=== PATIENT | female | born 1935 | race Caucasian/White ===

== ENCOUNTER 2017-01-15 14:57 | Inpatient (IN) ==
[2017-01-15] MEDS ORDERED: DUONEB (A & A) ONE (15:01)
[2017-01-15 15:13] LABS: MANUAL DIFF NEEDED? NO
[2017-01-15 15:15] LABS: BE 9.2 mmoll (-3.0-3.0); BLOOD TYPE ARTERIAL; DRAW SITE R BRACHIAL; METHB 1.5 % (0.0-1.5); O2(CT) 18.2 mL/dL (15.0-23.0); PO2(98.6) 80 mmHg (60-100); SAMPLE BLOOD; SAO2 97.9 % (95.0-100.0); THB 13.8 g/dL (11.5-17.4); pH(98.6) 7.42 (7.35-7.45)
[2017-01-15 15:15] LABS: BASO% 0.3 % (0.0-0.8); EOS# 0.02 X1000 (0.0-0.7); EOS% 0.2 % (0.0-10.0); HEMATOCRIT 40.1 % (37.0-47.0); IMM GRAN# 0.03 X1000 (0.0-0.04); IMM GRAN% 0.2 % (0.0-0.5); LYMPH# 1.76 X1000 (1.2-3.4); LYMPH% 13.5 % (20.5-51.1); MCH 29.7 PG (27-31); MCHC 32.4 g/dL (33-37); MCV 91.6 FL (81-99); MONO# 1.54 X1000 (0.11-0.59); MONO% 11.8 % (1.7-9.3); MPV 9.5 FL (7.4-10.4); PLT 224 X1000 (130-400); RBC 4.38 XMIL (4.2-5.4)
[2017-01-15] MEDS ORDERED: SOLU-MEDROL IV ONE (15:16)
[2017-01-15] MEDS ORDERED: DUONEB (A & A) INH ONE ×2 (15:16→15:33)
[2017-01-15] MEDS ORDERED: ATIVAN IV ONE (15:16)
[2017-01-15 15:18] LABS: ALLEN TEST NO; MODALITY CANNULA; PCO2(98.6) 55 mmHg (35-45)
--- NOTE | 2017-01-15 15:23 | EKG Report ---
Test Performed on : 01/15/2017 3:17:17 PM Test Reason : CHEST PAIN Blood Pressure : / mmHG Vent. Rate : 080 BPM Atrial Rate : 080 BPM P-R Int : 232 ms QRS Dur : 142 ms QT Int : 410 ms P-R-T Axes : 087 -45 095 degrees QTc Int : 472 ms Sinus rhythm. with 1st degree AV block. with occasional premature ventricular complexes. Left axis deviation Left bundle branch block Abnormal ECG When compared with ECG of 27-MAR-2016 03:20, premature ventricular complexes. are now present Left bundle branch block is now present Criteria for Septal infarct are no longer present Unconfirmed Result
[2017-01-15 15:37] LABS: INR 0.96 (0.86-1.15); PROTIME 13.6 Seconds (12.1-15.5)
[2017-01-15 15:38] LABS: PTT PL 37.5 Seconds (22.6-43.9)
--- NOTE | 2017-01-15 15:38 | PROVIDER DOCUMENTATION ---
HPI-General Adult - General Chief Complaint: Shortness of Breath Stated Complaint: sob Time Seen by Provider: 01/15/17 15:26 Source: patient Allergies/Adverse Reactions: Patient Allergies Allergy/AdvReac Type Severity Reaction Status Date / Time No Known Allergies Allergy Verified 03/27/16 03:13 Home Medications: Home Medication List Medication Instructions Recorded Confirmed Last Taken Type ATORVAstatin [Lipitor] 80 mg PO DAILY 03/27/16 03/27/16 03/26/16 History Albuterol 0.5% INH Conc [Albuterol 1 dose INH DIRECTED 03/27/16 03/27/16 Unknown History 0.5% INH Conc For Hyperkalemia] Amlodipine [Norvasc] 5 mg PO DAILY 03/27/16 03/27/16 03/26/16 History Arformoterol Neb [Brovana Neb] 1 dose INH DIRECTED 03/27/16 03/27/16 Unknown History Aspirin [Aspirin EC] 81 mg PO DAILY 03/27/16 03/27/16 03/26/16 History Azithromycin [Zithromax Z-Deonte] 250 mg PO DIRECTED #1 pkg 03/27/16 Unknown Rx Budesonide 1 dose INH DIRECTED 03/27/16 03/27/16 Unknown History Calcium Carbonate [Caltrate 600] 1,200 mg PO DAILY 03/27/16 03/27/16 03/26/16 History Cetirizine HCl [Zyrtec] 10 mg PO DAILY 03/27/16 03/27/16 03/26/16 History Denosumab [Prolia] 1 dose IM DIRECTED 03/27/16 03/27/16 Unknown History Famotidine 20 mg PO DAILY 03/27/16 03/27/16 03/26/16 History Fluticasone 50 Mcg Nasal [place] 1 spray INH DIRECTED 03/27/16 03/27/16 History [Flonase] Furosemide 20 mg PO DAILY 03/27/16 03/27/16 03/26/16 History Lisinopril/Hydrochlorothiazide 1 tab PO DAILY 03/27/16 03/27/16 03/26/16 History [Lisinopril-Hctz 20-12.5 mg Tab] Methylprednisolone [Medrol Dosepak] 4 mg PO DIRECTED #1 package 03/27/16 Unknown Rx Metoprolol Succinate E.r. [Toprol 100 mg PO DAILY 03/27/16 03/27/16 03/26/16 History Xl] Potassium Chloride 10 meq PO DAILY 03/27/16 03/27/16 03/26/16 History - History of Present Illness -Gen Adult Nature of Presenting Problems: Pt. is 81 yof that presents with c/o SOB that has been worsening for three days. Pt. has a Hx of COPD and is on O2 all the time. Pt. denies any fever or other symptoms. Pt. states she is coughing but can't seem to get anything up. Location of Pain/Injury: reports: none. denies: head, face, mouth, neck, chest , upper extremity, hand(s), abdomen, back, pelvis, genitalia, lower extremity, feet, upper body, lower body, generalized, other Pain Radiation: reports: no radiation. denies: arm(s), back, buttocks, chest, epigastric, feet, groin, jaw, flank (L), legs (lower), LLQ, LUQ, neck, periumbilical, flank (R), RLQ, RUQ, shoulder(s), scapula, scrotal, sternal notch , suprapubic, legs (upper), urethral, vaginal, other Quality of Pain: reports: none. denies: aching, burning, cramping, dull, fullness, indigestion, pressure, sharp, stabbing, tearing, throbbing, tightness Severity: denies: mild, moderate, severe Onset/Duration: reports: gradual, 3 days ago Timing: reports: still present. denies: improving, gone now, resolved prior to arrival, intermittent, constant, changing over time, getting worse Context/Activities at Onset: reports: none. denies: recent emotional stress, recent physical stress, recent trauma history, possible bad food, cold exposure , out of country travel Modifying Factors: improves with: nothing Associated Symptoms: reports: anxiety, cough, shortness of breath. denies: denies symptoms, arm pain, back/neck pain, chest pain, constipation, diaphoresis , diarrhea, dizziness, EENT symptoms, fatigue, fever/chills, genitourinary problems, headaches, heartburn, joint pain, loss of appetite, malaise, muscle aches, sinus congestion/drainage, nausea, rash, seizure, sensory/motor loss, pain with inspiration, swelling/mass in abdomen, syncope, vomiting, weakness, trouble walking, other Similar Symptoms Previously?: Yes Recently seen or treated by another doctor?: No Review of Systems - Adult - REVIEW OF SYSTEMS - ADULT Constitutional: reports: see HPI. denies: chills, fever, fatique Eyes: reports: see HPI. denies: discharge, blurred vision, eye pain Ears, Nose, Mouth & Throat: reports: see HPI. denies: ear pain, sinus problem, mouth/dental pain, throat swelling Cardiovascular: reports: see HPI. denies: chest pain, irregular heart rate, palpitations, syncope Respiratory: reports: see HPI, cough, dyspnea on exertion, shortness of breath. denies: pleurisy, wheezing Gastrointestinal: reports: see HPI. denies: abdominal pain, diarrhea, nausea, vomiting Genitourinary: reports: see HPI. denies: dysuria, hematuria, incontinence, urgency Musculoskeletal: reports: see HPI. denies: bone pain, joint pain, muscle aches , neck pain Integumentary: reports: see HPI. denies: hives, itching, rash, skin thickening Neurological: reports: see HPI. denies: ataxia, headache/migraines, numbness, seizure, tremors Psychiatric: reports: see HPI. denies: anxiety, depression, emotional problems , insomnia, panic attacks, suicidal thoughts Past History - Adult - PAST MEDICAL HISTORY-ADULT Review of Records: reports: Old Records Reviewed, Nursing Assessment Review, Medications Reviewed, Social history reviewed & non-contributory. Major Childhood Illnesses: reports: denies history Cardiovascular: reports: HTN, hyperlipidemia, other (AAA) Respiratory: reports: COPD - PRIOR SURGERIES/PROCEDURES Surgical/Procedure History: reports: - IMMUNIZATION STATUS Childhood Immunizations: See Nurse Assessment Flu Vaccine: See Nurse Assessment - FAMILY HISTORY Family History: reviewed, not pertinent, other (o2 daily) - SOCIAL HISTORY Smoking: cigarettes, less than 1 pack/day Provider spent 3-5 mins advising pt. on dangers of tobacco.: Discussed the need to stop smoking. Physical Exam-General - PHYSICAL EXAM-ADULT Initial Vital Signs Reviewed: Yes - CONSTITUTIONAL General Appearance: alert, moderate distress, thin. negative: obese, anxious, lethargic, slow to respond, obtunded, combative - EYES Eyes: PERRL/EOMI, pink conjunctivae. negative: conjuctival exudate, photophobia , subconjunctival hemorrhage - HEAD, EARS, NOSE, MOUTH & THROAT HENMT: normocephalic/atraumatic, moist mucous membranes. negative: angioedema, frontal tenderness, maxillary tenderness - NECK Neck: non-tender, full range of motion, supple, normal inspection. negative: lymphadenopathy, trachial deviation, thyromegaly - RESPIRATORY Respiratory: accessory muscle use, rhonchi (bilaterally), wheezing, increased rate. negative: crackles, rales, stridor - CARDIOVASCULAR Cardiovascular: normal peripheral pulses, regular rate, rhythm, no edema, no JVD , no murmur. negative: extra beats, friction rub, irregularly irregular - GASTROINTESTINAL (ABDOMEN) Abdominal Exam: normal bowel sounds, non tender, soft. negative: distended, guarding, rigid, rebound, tenderness, hernia, mass - LYMPHATIC Lymphatic: no adenopathy. negative: axilla node tender, cervical node tenderness - MUSCULOSKELETAL Back Exam: normal inspection, no CVA tenderness, no vertebral tenderness. negative: ecchymosis, swelling, vertebral tenderness Extremity: normal range of motion, non-tender, normal gait, normal inspection. negative: deformity, erythema, inflammation, swelling, tenderness Peripheral Pulses: radial (R): 2+, radial (L): 2+ - SKIN Integumentary: normal color, normal turgor, warm/dry. negative: cyanosis, diaphoresis, ecchymosis, erythema, jaundice, mottled, pallor, petechiae, purpura , rash, swelling, tenderness - NEUROLOGIC Neurologic: grossly normal, no motor/sensory deficits. negative: aphasia, facial droop, focal weakness, motor weakness, sensory deficit - PSYCHIATRIC Psych/Mental Status: normal mood/affect, normal thought content, normal thought process, oriented x 3. negative: anxious, paranoid, tearful Progress - PLAN OF CARE/RESULTS Progress/Plan/Lab Results: Vital Signs - 8 hr 01/15/17 15:01 01/15/17 15:20 Pulse Rate 81 94 H Respiratory Rate 28 H 20 Blood Pressure 184/96 O2 Sat by Pulse Oximetry 94 L 96 Laboratory Results - last 24 hr 01/15/17 01/15/17 14:45 15:11 WBC 13.04 H RBC 4.38 Hgb 13.0 Hct 40.1 MCV 91.6 MCH 29.7 MCHC 32.4 L RDW Std Deviation 13.3 Plt Count 224 MPV 9.5 Immature Gran % (Auto) 0.2 Neut % (Auto) 74.0 Lymph % (Auto) 13.5 L [place] % (Auto) 11.8 H Eos % (Auto) 0.2 Baso % (Auto) 0.3 Immature Gran # (Auto) 0.03 Neut # (Auto) 9.65 H Lymph # (Auto) 1.76 [place] # (Auto) 1.54 H Eos # (Auto) 0.02 Baso # (Auto) 0.04 Specimen Type ARTERIAL Sample Site R BRACHIAL pH 7.42 pCO2 55 H* pO2 80 HCO3 32.0 H Base Excess 9.2 H Oxyhemoglobin 93.5 L ABG O2 Sat (Calculated) 18.2 ABG O2 Saturation 97.9 ABG Carboxyhemoglobin 3.00 H ABG Methemoglobin 1.5 [place] Test NO A-a O2 Difference 79.0 Total Hemoglobin 13.8 Lactate 0.70 Liter Flow 3.0 Blood Gas Modality CANNULA FiO2 % 32.0 Orders Category Date Time Status Cardiac Monitoring DIRECTED Care 01/15/17 15:04 Active Oxygen Therapy- ED Nursing DIRECTED Care 01/15/17 15:04 Active Saline Loc NOW Care 01/15/17 15:04 Active CHEST-2 VIEWS [RAD] Stat Exams 01/15/17 15:04 Ordered ABG [RESP] Routine Lab 01/15/17 14:45 Completed Blood Gas [ABG] [RESP] Routine Lab 01/15/17 15:28 Ordered CBC WITH ELECTRONIC DIFF [HEME] Stat Lab 01/15/17 15:11 Completed CK PROFILE [SP CHEM] Stat Lab 01/15/17 15:11 Received COMPREHENSIVE METABOLIC PANEL [CHEM] Stat Lab 01/15/17 15:11 Received MAGNESIUM [CHEM] Stat Lab 01/15/17 15:11 Received PRO B-NATRIURETIC PEPTIDE Stat Lab 01/15/17 15:11 Received [address]IME WITH INR PL [COAG] Stat Lab 01/15/17 15:[address] [COAG] Stat Lab 01/15/17 15:11 Received SPUTUM CULTURE WITH GRAM STAIN [RM] Stat Lab 01/15/17 15:32 Uncollected TROPONIN T Stat Lab 01/15/17 15:11 Received Albuterol 2.5MG/Ipratrop 0.5MG [Duoneb (A & A)] Med 01/15/17 15:01 Discontinued 3 ml .ROUTE .STK-MED ONE Albuterol 2.5MG/Ipratrop 0.5MG [Duoneb (A & A)] Med 01/15/17 15:16 Discontinued 3 ml INH NOW ONE Albuterol 2.5MG/Ipratrop 0.5MG [Duoneb (A & A)] Med 01/15/17 15:33 Once 3 ml INH NOW ONE Lorazepam [Ativan] Med 01/15/17 15:16 Discontinued 0.5 mg IV NOW ONE Methylprednisolone Sod Succ [Solu-Medrol] Med 01/15/17 15:16 Discontinued 125 mg IV NOW ONE Aerosol Treatments Routine Oth 01/15/17 15:16 Completed Aerosol Treatments Routine Oth 01/15/17 15:33 Active Aerosol Treatments Stat Oth 01/15/17 15:16 Completed Aerosol Treatments Stat Oth 01/15/17 15:33 Active EKG [EKG] Stat Ther 01/15/17 15:04 Draft Discussed results and plan of care with patient. Patient agrees with plan and verbalizes understanding. Result Diagrams: 01/15/17 15:11 01/15/17 15:11 - XRAY 1 XRAY Study: Chest XRAY Interpretation: Right middle lobe pneumoia per radiology. - CONSULTS/PCP/HOSPITALIST Notification #1 *Consult/PCP/Hospitalist*: Dr. Becker Time Discussed: 17:12 Reason/Comments: Admission Consult Disposition: Admit Departure - Departure Date of Disposition Decision: 01/15/17 Time of Disposition Decision: 17:13 DIAGNOSIS: CAP (community acquired pneumonia) Qualifiers: Laterality: right Lung location: middle lobe of lung Qualified Code(s): J18.1 - Lobar pneumonia, unspecified organism Disposition: ADMITTED INPATIENT 09 Certified Medical Emergency: Emergent Condition: Stable Referrals and Follow-Ups: Tara Wu MD [Primary Care Provider] - - Critical Care Note This patient required my direct & personal management of CC.: No Attestation - Physician/ MARCUS Attestation Patient care was provided by Advanced Practice Provider:: Yes Advanced Practice Provider:: Tam Quinteros (The physician is on site and available for consultation but did not have face to face contact with the patient.. ) Advanced Practice Provider documentation review:: The Mid-level provider documentation, treatment plan and medical decision making was reviewed by the physician who agrees with all treatment and medical decision making by the MLP. The physician spent face to face time with patient:: No Advanced Practice Provider documentation review:: Supervising physician onsite and consulted in the evaluation and care of this patient. The physician did not have a face to face encounter with the patient.
[2017-01-15 15:41] LABS: AGAP 10; ALBUMIN 3.8 g/dL (3.5-5.0); ALKALINE PHOSPHATASE 83 U/L (32-104); BUN 20 mg/dL (8-22); CALCIUM 9.8 mg/dL (8.8-10.2); CHLORIDE 94 mmol/L (98-107); CK PROFILE 60 U/L (24-173); COSMO 272; GOT 38 U/L (10-30); GPT 30 U/L (10-36); POTASSIUM 3.7 mmol/L (3.5-5.1); SODIUM 134 mmol/L (136-145); TCO2 30 mmol/L (25-35); TOTAL PROTEIN 7.3 g/dL (6.3-8.3)
--- NOTE | 2017-01-15 16:07 | Diag Imaging Result Doc PS360 ---
EXAM: CHEST-2 VIEWS HISTORY: CP TECHNIQUE: PA and lateral chest COMMENT: There is dense alveolar opacification of the right middle lobe. This was not present on 07/05/2016. There is evidence of COPD. IMPRESSION: Right middle lobe pneumonia. Advise follow-up until clear. Electronically signed by Dell Snyder 01/15/2017 4:05 PM
[2017-01-15] MEDS ORDERED: ROCEPHIN 1 GM/NS 1 GM/50 ML IVPB IV ONE (17:06)
[2017-01-15] MEDS ORDERED: ZITHROMAX 500 MG/NS 500 MG/250 ML IVPB IV ONE (17:06)
[2017-01-15] MEDS ORDERED: DUONEB (A & A) INH PRN (17:39)
--- NOTE | 2017-01-15 18:33 | HISTORY AND PHYSICAL ---
PRIMARY CARE PHYSICIAN: Dr. Tara Wu. TRACK LAMINATING MACHINE TENDER: Dr. Juanjo Bravo. CHIEF COMPLAINT: Shortness of breath. HISTORY OF PRESENT ILLNESS: This is an 81-year-old female with a history of COPD, on home O2, who is complaining of increasing shortness of breath over the past 3 days. She states that, at first, the shortness of breath was with movement, but over the last 24 hours she has had shortness of breath at rest. She is able to lie flat with no difficulty breathing. She has had a persistent, dry, hacking cough. She denied any fever, chills, any chest pain, or palpitations. Chest x-ray revealed right middle lobe pneumonia. She did have a white count of 13. We will draw blood cultures and continue Rocephin and Zithromax, as per ER medications. PAST MEDICAL HISTORY: 1. COPD with home O2. 2. Hyperlipidemia. 3. Hypertension. 4. Osteoporosis. 5. Daily tobacco use. 6. She has atrial fibrillation, as well as a mild dilatation of the ascending aorta, which is stable from 2013. PAST SURGICAL HISTORY: . SOCIAL HISTORY: She smokes daily. She denies alcohol or illicit drug use. She does live with her daughter. ALLERGIES: No known drug allergies. HOME MEDICATIONS: A list will be obtained. REVIEW OF SYSTEMS: A 14-point review of systems is discussed with the patient, with pertinent positives being stated in the HPI. She denied chest pain, palpitations, dizziness, syncope, PND, orthopnea, nausea, vomiting, diarrhea, constipation, black or bloody vomitus, black or bloody stools, any hematuria, dysuria, frequency, or urgency. PHYSICAL EXAMINATION: GENERAL: This is a very pleasant, 81-year-old female, who is lying in the bed, in no distress. VITAL SIGNS: Blood pressure is 122/60, with a heart rate of 85, respirations are 20, with temperature 97.7 degrees oral, and O2 saturations of 95% to 96% on 3 L nasal cannula. HEENT: Head is normocephalic, atraumatic. Pupils equal, round, react to light. EOMS are intact. Sclerae anicteric. Mucous membranes are moist. NECK: Supple, with trachea midline. CARDIOVASCULAR: Regular rate and rhythm, with frequent PVCs and PACs. S1 and S2 appreciated. PULMONARY: She has rhonchi and wheezes scattered throughout. She is in mild distress. Chest does rise and fall symmetrically with respiration. She is able to speak in full sentences. She is able to lie flat. GASTROINTESTINAL: Soft, nontender, nondistended with bowel sounds in all 4 quadrants. MUSCULOSKELETAL: Good range of motion of joints. NEUROLOGIC: She is alert orient x3. Her cranial nerves 2-12 grossly intact. EXTREMITIES: No clubbing, cyanosis, or edema. Calves are nontender. Pulses are palpable x4. SKIN: Warm and dry, with bruises noted to both shins. The daughter states that she bumps them up against the bed while getting in and out. DIAGNOSTICS: Chest x-ray revealed right middle lobe pneumonia. EKG revealed a sinus rhythm with a first-degree AV block. She does have some occasional PVCs. She had PACs on telemetry. She is a new left bundle when compared to March 2016. LABORATORIES: WBC is 13, with hemoglobin 13, hematocrit 40.1, and platelets of 224,000. Sodium is 134, potassium 3.7, BUN 20, creatinine 0.6, with a glucose of 113. Troponin is less than 0.010. ABG: PH is 7.42, with a pCO2 of 55, PO2 of 80, and a bicarb of 32. ASSESSMENT AND PLAN: 1. Right middle lobe pneumonia. 2. Chronic obstructive pulmonary disease with mild exacerbation. 3. History of atrial fibrillation. 4. Leukocytosis, secondary to #1. 5. Hypertension. 6. Anxiety. 7. Tobacco use and abuse. PLAN: She will be admitted to the hospital, placed on telemetry. We will give supplemental oxygen with DuoNeb q.4 hours or q.2 p.r.n. We will give steroids to taper. We will draw blood cultures, and we will continue antibiotics - further antibiotics will be culture driven We will identify her home medications and continue as appropriate. We will consult Cardiology, as she does have a new left bundle branch block. We will continue to trend troponin. Further treatments pending hospital course. Dictated by KINSEY Martinez for Kumar Becker MD cc: KINSEY Martinez MD [facility]
[2017-01-15] MEDS: DUONEB (A & A) INH SCH ×2 (19:19→22:57)
[2017-01-15] MEDS: SOLU-MEDROL IV SCH (23:00)
[2017-01-16] MEDS: DUONEB (A & A) INH SCH ×5 (02:51→19:17)
[2017-01-16 06:04] LABS: HEMATOCRIT 36.7 % (37.0-47.0); HEMOGLOBIN 11.3 g/dL (12.0-16.0); MCH 28.3 PG (27-31); MCHC 30.8 g/dL (33-37); MCV 91.8 FL (81-99); MPV 9.9 FL (7.4-10.4)
[2017-01-16 06:18] LABS: AGAP 9; ALBUMIN 3.4 g/dL (3.5-5.0); ALKALINE PHOSPHATASE 68 U/L (32-104); BUN 31 mg/dL (8-22); CALCIUM 9.2 mg/dL (8.8-10.2); CHLORIDE 97 mmol/L (98-107); COSMO 285; GOT 24 U/L (10-30); GPT 21 U/L (10-36); MAGNESIUM 2.1 mg/dL (1.5-2.7); POTASSIUM 3.2 mmol/L (3.5-5.1); SODIUM 137 mmol/L (136-145); TCO2 31 mmol/L (25-35); TOTAL PROTEIN 6.3 g/dL (6.3-8.3)
[2017-01-16] MEDS: PRILOSEC PO SCH (06:27)
[2017-01-16] MEDS: SOLU-MEDROL IV SCH ×3 (06:57→22:05)
[2017-01-16] MEDS ORDERED: ZITHROMAX PO SCH (17:00)
[2017-01-16] MEDS ORDERED: ROCEPHIN 1 GM/NS 1 GM/50 ML IVPB IV SCH (17:15)
[2017-01-16] MEDS ORDERED: ZITHROMAX 500 MG/NS 500 MG/250 ML IVPB IV SCH ×2 (17:15)
[2017-01-16] MEDS: TYLENOL PO PRN (21:01)
[2017-01-17] MEDS: DUONEB (A & A) INH SCH ×2 (02:17→07:25)
[2017-01-17] MEDS: SOLU-MEDROL IV SCH (06:16)
[2017-01-17] MEDS: PRILOSEC PO SCH (06:16)
[2017-01-17 06:22] LABS: HEMATOCRIT 35.3 % (37.0-47.0); HEMOGLOBIN 10.9 g/dL (12.0-16.0); MCH 28.5 PG (27-31); MCHC 30.9 g/dL (33-37); MCV 92.2 FL (81-99); MPV 10.1 FL (7.4-10.4); RBC 3.83 XMIL (4.2-5.4)
[2017-01-17 06:46] LABS: AGAP 5; ALBUMIN 3.6 g/dL (3.5-5.0); ALKALINE PHOSPHATASE 64 U/L (32-104); BUN 28 mg/dL (8-22); CHLORIDE 99 mmol/L (98-107); COSMO 284; GOT 22 U/L (10-30); GPT 20 U/L (10-36); POTASSIUM 5.3 mmol/L (3.5-5.1); SODIUM 138 mmol/L (136-145); TCO2 34 mmol/L (25-35); TOTAL PROTEIN 6.4 g/dL (6.3-8.3)
--- NOTE | 2017-01-17 07:57 | PROGRESS NOTE ---
DATE: 01/16/2017 SUBJECTIVE: Patient notes that she is starting a breathing a lot easier. She had a much better night. Denies any chest pain, palpitations. Still having a cough, still short of breath with activity, but improving. PHYSICAL: Vital Signs: Reviewed. She is awake, alert, oriented. She is afebrile, blood pressure is stable. Respiratory 20. General: Patient is sitting on the side of the bed talking to her daughter. She is in mild respiratory distress. Neck: Supple. CV: Regular rate. Chest: Much more clear, only occasional wheezing. Equal breath sounds bilaterally. Extremities: Moves all extremities. Trace edema. Abdomen: Soft, nondistended. Neurologic: No focal changes. LABS: Reviewed. ASSESSMENT: 1. Right middle lobe pneumonia improved. 2. Chronic obstructive pulmonary disease with mild exacerbation, improving. 3. Anxiety. Certainly Solu-Medrol is contributing. 4. Hypertension. 5. Chronic tobacco abuse. PLAN: Will wean Solu-Medrol down to 40 q.8. Hopefully home in the a.m. We will continue to follow. Further orders as needed. Discussed with patient to attempt to get out of bed today and ambulate some, and see if this will help her symptoms. cc: Kumar Becker MD
[2017-01-17] MEDS: TYLENOL PO PRN (10:59)
[2017-01-17 12:54] VITALS: BP 118/65
--- NOTE | 2017-01-17 17:04 | DISCHARGE SUMMARY ---
ADMISSION DATE: 01/15/2017 DISCHARGE DATE: 01/17/2017 ADMITTING DIAGNOSES: 1. Chronic obstructive pulmonary disease exacerbation. 2. Right middle lobe pneumonia. 3. Anxiety. 4. Hypertension. DISCHARGE DIAGNOSES:: 1. Chronic obstructive pulmonary disease exacerbation. 2. Right middle lobe pneumonia. 3. Anxiety. 4. Hypertension. HOSPITAL COURSE: Briefly, this is an 81-year-old female who comes in from home with shortness of breath for 3 days. White count was initially 13,000. Chest x-ray showed a right middle lobe pneumonia. She was empirically placed on Rocephin and azithromycin. She slowly improved. Cardiology was consulted for a new left bundle branch block. She was seen on January 16, was breathing better. Clinically, she has stabilized and was felt stable for discharge on January 17. She will need to follow up with her PCP concerning EKGs. It looks like she has been seen by Dr. Bravo. She has a history of CAD, and I think she has been seen by Dr. Bravo. PFT showed severe airflow obstruction. DISCHARGE CONDITION: Stable. We will continue to follow. She will need followup as an outpatient. In any case, she will need to follow up with her PCP in 1 to 2 weeks, and follow up with Cardiology in 2 to 4 weeks concerning her abnormal EKG. At this point, she has had no chest pain, and her troponins were negative. Discharge condition is stable. DISCHARGE MEDICATIONS: 1. DuoNeb b.i.d. 2. Aspirin 81 daily. 3. Lipitor 80 daily. 4. Budesonide 1 b.i.d. 5. Caltrate 1200 daily. 6. Omnicef 300 b.i.d. for 7 days. 7. Zyrtec 10 daily. 8. Prolia, 1 dose daily, 9. Pepcid 20 daily. 10. Lasix 20 daily. 11. Lisinopril/hydrochlorothiazide 20/12.5 daily. 12. Toprol-XL 100 daily. 13. Klor-Con 10 daily. 14. Prednisone taper. She did have a little bit of leukocytosis, but she has been on steroids, a little bit of hyperkalemia as well. Potassium is 5.3, although she has not been getting her home medications since she has been in the hospital, so I do not think she was on her lisinopril/hydrochlorothiazide. DISCHARGE TIME: 35 minutes cc: MD Dr. Jazmin Munson MD
--- NOTE | 2017-03-11 09:49 | ED EKG INTERP ---
This chart was entered by Alexia Hernandez Scribe, acting as scribe for Cornelius Ahumada MD. EKG Interpretation - EKG Time of EKG reading by physician:: 15:43 EKG Read and Signed by:: Cornelius Ahumada EKG Interpretation (*Must complete 3 of following elements*): Abnormal Rate: 80 Rhythm: sinus rhythm with 1st degree AV block with occassional premature ventricula [place]: left QRS: LBB Comments: abnormal ECG Attestation - Physician/ MARCUS Attestation Patient care was provided by Advanced Practice Provider:: Yes Advanced Practice Provider documentation review:: The Mid-level provider documentation, treatment plan and medical decision making was reviewed by the physician who agrees with all treatment and medical decision making by the MLP. The physician spent face to face time with patient:: No Advanced Practice Provider documentation review:: Supervising physician onsite and consulted in the evaluation and care of this patient. The physician did not have a face to face encounter with the patient. This chart was documented by the indicated scribe, (Alexia Hernandze Scribe) and accurately reflects the services I performed and decisions made by me, Cornelius Ahumada MD, as attested by the provider's signature.
== END 2017-01-17 14:27 | disposition home or self-care (01) ==
LOC: P.ED 14:57 → SUATTDRO 17:42 → P.MEDSURG 17:42
PROVIDERS: ATTEND Internal Medicine

== ENCOUNTER 2018-11-22 18:40 | Inpatient (IN) ==
--- NOTE | 2018-11-22 19:07 | PROVIDER DOCUMENTATION ---
HPI-General Adult - General Chief Complaint: Altered Mental Status Stated Complaint: cough Time Seen by Provider: 11/22/18 18:50 Source: patient Allergies/Adverse Reactions: Patient Allergies Allergy/AdvReac Type Severity Reaction Status Date / Time levofloxacin [From Levaquin] Allergy RASH Verified 11/22/18 20:29 Home Medications: Home Medication List Medication Instructions Recorded Confirmed Last Taken Type ATORVAstatin [Lipitor] 80 mg PO DAILY 03/27/16 01/15/17 03/26/16 History Aspirin [Aspirin EC] 81 mg PO DAILY 03/27/16 01/15/17 03/26/16 History Budesonide 1 dose INH RTBID 03/27/16 01/15/17 Unknown History Calcium Carbonate [Caltrate 600] 1,200 mg PO DAILY 03/27/16 01/15/17 03/26/16 History Cetirizine HCl [Zyrtec] 10 mg PO DAILY 03/27/16 01/15/17 03/26/16 History Denosumab [Prolia] 1 dose IM DIRECTED 03/27/16 01/15/17 Unknown History Famotidine 20 mg PO DAILY 03/27/16 01/15/17 03/26/16 History Furosemide 20 mg PO DAILY 03/27/16 01/15/17 03/26/16 History Lisinopril/Hydrochlorothiazide 1 tab PO DAILY 03/27/16 01/15/17 03/26/16 History [Lisinopril-Hctz 20-12.5 mg Tab] Metoprolol Succinate E.r. [Toprol 100 mg PO DAILY 03/27/16 01/15/17 03/26/16 History Xl] Potassium Chloride 10 meq PO DAILY 03/27/16 01/15/17 03/26/16 History Albuterol 2.5MG/Ipratrop 0.5MG 3 ml INH RTBID 01/15/17 01/15/17 Unknown History [Duoneb (A & A)] CefDINIR [Omnicef] 300 mg PO BID #14 capsule 01/17/17 Unknown Rx Prednisone See Taper PO DAILY #30 tablet 01/17/17 Unknown Rx - History of Present Illness -Gen Adult Nature of Presenting Problems: Patient is a 83 yowf presenting to the ED today for weakness. daughter reports she complained once of right upper quadrant pain yesterday but has not mentioned it today, and does not respond when asked if she has pain there. daughter reports she typically gets up and goes to the bathroom herself, but she was unable to today. she reports she has not eaten well or drank well today. she has been sleeping more today and laying around. she denies any recent falls. daughter reports she has COPD but has not been SOB today or recently. daughter reports she is not more altered than usual, she is at her baseline as far as mental status goes. she has a history of dementia. daughter reports she has had 3-4 bowel movements today- she gives her stool softeners every 3 days since she cannot strain to defecate. Location of Pain/Injury: reports: none Pain Radiation: reports: no radiation Quality of Pain: reports: none Associated Symptoms: reports: loss of appetite, weakness. denies: constipation, cough, dizziness, fatigue, headaches, malaise, muscle aches, rash, seizure, sh ortness of breath, pain with inspiration, swelling/mass in abdomen, syncope, vomiting Similar Symptoms Previously?: No Recently seen or treated by another doctor?: No Review of Systems - Adult - REVIEW OF SYSTEMS - ADULT Constitutional: reports: no symptoms reported. denies: chills, fever Eyes: reports: no symptoms reported Ears, Nose, Mouth & Throat: reports: no symptoms reported Cardiovascular: reports: no symptoms reported. denies: syncope Respiratory: reports: no symptoms reported. denies: cough, shortness of breath, wheezing Gastrointestinal: reports: no symptoms reported. denies: constipation, diarrhea, nausea, vomiting Genitourinary: reports: no symptoms reported Musculoskeletal: reports: muscle weakness Integumentary: reports: no symptoms reported Neurological: reports: no symptoms reported Psychiatric: reports: no symptoms reported Endocrine: reports: no symptoms reported Hematologic/Lymphatic: reports: no symptoms reported Allergic/Immunologic: reports: no symptoms reported All Other Systems: Reviewed and Negative Past History - Adult - PAST MEDICAL HISTORY-ADULT Review of Records: reports: Old Records Reviewed, Nursing Assessment Review, Medications Reviewed Major Childhood Illnesses: reports: denies history Cardiovascular: reports: HTN, hyperlipidemia, other (AAA) Respiratory: reports: COPD Gastrointestinal: reports: denies history Genitourinary: reports: denies history. denies: incontinence Musculoskeletal: reports: denies history Neurological: reports: dementia Psychiatric: reports: denies history - PRIOR SURGERIES/PROCEDURES Surgical/Procedure History: reports: - IMMUNIZATION STATUS Childhood Immunizations: See Nurse Assessment Flu Vaccine: See Nurse Assessment - FAMILY HISTORY Family History: reviewed, not pertinent, other (o2 daily) - SOCIAL HISTORY Smoking: cigarettes Provider spent 3-5 mins advising pt. on dangers of tobacco.: Discussed manners to quit use, and f/u contacts for add'l counseling. Physical Exam-General - PHYSICAL EXAM-ADULT Initial Vital Signs Reviewed: Yes - CONSTITUTIONAL General Appearance: alert, no apparent distress, other (patient does not respond to questions asked due to dementia- family reports this is baseline) - EYES Eyes: PERRL/EOMI, pink conjunctivae, conjuctival exudate (patient being treated by family doctor for conjuctivitis in right eye) - HEAD, EARS, NOSE, MOUTH & THROAT HENMT: normocephalic/atraumatic, moist mucous membranes - NECK Neck: non-tender, supple - RESPIRATORY Respiratory: chest non-tender, normal breath sounds, no pleuratic chest pain, no respiratory distress, no accessory muscle use, crackles (right base), rhonchi (right base) - CARDIOVASCULAR Cardiovascular: normal peripheral pulses, regular rate, rhythm, no edema, no JVD - GASTROINTESTINAL (ABDOMEN) Abdominal Exam: normal bowel sounds, non tender, soft - LYMPHATIC Lymphatic: no adenopathy - MUSCULOSKELETAL Back Exam: normal inspection, no CVA tenderness, no vertebral tenderness Extremity: non-tender, normal inspection - SKIN Integumentary: normal color, normal turgor, warm/dry - NEUROLOGIC Neurologic: grossly normal - PSYCHIATRIC Psych/Mental Status: normal mood/affect, other (at baseline) Progress - PLAN OF CARE/RESULTS Progress/Plan/Lab Results: Vital Signs - 8 hr 11/22/18 18:42 Temperature 99.0 F Pulse Rate 93 H Respiratory Rate 18 Blood Pressure 140/097 O2 Sat by Pulse Oximetry 89 L Orders Category Date Time Status ABDOMEN FLAT/UPRIGHT [RAD] Stat Exams 11/22/18 18:58 Ordered CHEST-2 VIEWS [RAD] Stat Exams 11/22/18 18:58 Ordered CBC WITH ELECTRONIC DIFF [HEME] Stat Lab 11/22/18 18:58 Uncollected CK PROFILE [SP CHEM] Stat Lab 11/22/18 19:01 Ordered COMPREHENSIVE METABOLIC PANEL [CHEM] Stat Lab 11/22/18 18:58 Uncollected TROPONIN T Stat Lab 11/22/18 19:[address] W/POSS RFLX CULT [URINALYSIS] Stat Lab 11/22/18 18:58 Uncol lected Discussed plan of care with family. they understand and agree with plan of care and deny any questions at this time. Result Diagrams: 11/22/18 19:41 11/22/18 19:41 - XRAY 1 XRAY Study: Chest Impression: See EMR Report ( EXAM: CHEST-2 VIEWS - 11/22/2018 HISTORY: weakness TECHNIQUE: Chest two views COMPARISON: 01/15/2017 FINDINGS: There is recurrent or chronic infiltrate at the right middle lobe which has increased. There is mild prominence of infrahilar markings on the left. There are no other acute changes identified. IMPRESSION: Recurrent or chronic infiltrate at right middle lobe which appears increased from prior. Electronically signed by Dujour App 11/22/2018 9:03 PM 11/22/182102 Interpreting Physician: Yoav Vallecillo MD Dictated Date/Time: 11/22/182100 cc: Odilia Young; None,PCP) 2 XRAY Study: Abdomen Impression: See EMR Report ( EXAM: ABDOMEN FLAT/UPRIGHT - 11/22/2018 HISTORY: weakness TECHNIQUE: Supine and upright abdomen COMPARISON: 02/19/2016 FINDINGS: The bowel gas pattern appears nonspecific and nonobstructive. There is no free air identified. There are atherosclerotic calcifications noted. IMPRESSION: Nonspecific bowel gas pattern. Electronically signed by Dujour App 11/22/2018 9:01 PM 11/22/182100 Interpreting Physician: Yoav Vallecillo MD Dictated Date/Time: 11/22/182099 cc: Odilia Young; None,PCP) - CONSULTS/PCP/HOSPITALIST Notification #1 *Consult/PCP/Hospitalist*: Dr. Vasquez Time Discussed: 21:20 Reason/Comments: admit for UTI and pneumonia Consult Disposition: Admit Departure - Departure Date of Disposition Decision: 11/22/18 Time of Disposition Decision: 21:20 DIAGNOSIS: Pneumonia Qualifiers: Pneumonia type: due to unspecified organism Laterality: right Lung location: middle lobe of lung Qualified Code(s): J18.1 - Lobar pneumonia, unspecified organism Urinary tract infection Qualifiers: Urinary tract infection type: site unspecified Hematuria presence: without hematuria Qualified Code(s): N39.0 - Urinary tract infection, site not specified Disposition: ADMITTED INPATIENT 09 Certified Medical Emergency: Emergent Condition: Stable - Critical Care Note This patient required my direct & personal management of CC.: No Attestation - Physician/ MARCUS Attestation Patient care was provided by Advanced Practice Provider:: Yes Advanced Practice Provider:: Odilia Young Advanced Practice Provider documentation review:: The Mid-level provider documentation, treatment plan and medical decision making was reviewed by the physician who agrees with all treatment and medical decision making by the MLP. The physician spent face to face time with patient:: No Advanced Practice Provider documentation review:: Supervising physician onsite and consulted in the evaluation and care of this patient. The physician did not have a face to face encounter with the patient.
[2018-11-22 19:44] LABS: CLARITY CLEAR (CLEAR); COLOR YELLOW
[2018-11-22 19:45] LABS: BILIRUBIN URINE NEGATIVE (NEGATIVE); BLOOD URINE TRACE (NEGATIVE); GLUCOSE URINE NEGATIVE (NEGATIVE); KETONE URINE NEGATIVE (NEGATIVE); LEUKOCYTES URINE NEGATIVE (NEGATIVE); NITRITE URINE NEGATIVE (NEGATIVE); PROTEIN URINE NEGATIVE (NEGATIVE); SP GRAVITY URINE 1.015; UROBILINOGEN URINE NORMAL
[2018-11-22 19:52] LABS: URINE BACTERIA 4+ /HFP; URINE EPITHELIAL CELLS <10 /HPF (<10); URINE RBC <10 /HPF (<10); URINE YEAST NONE SEEN /HPF
[2018-11-22 19:53] LABS: URINE CRYSTAL NONE SEEN /HPF; URINE SOURCE CATH
[2018-11-22 19:54] LABS: URINE SMALL ROUND CELLS RENAL PRESENT
[2018-11-22 20:05] LABS: BASO# 0.02 X1000 (0.0-0.2); BASO% 0.2 % (0.0-0.8); EOS# 0.01 X1000 (0.0-0.7); EOS% 0.1 % (0.0-10.0); HEMATOCRIT 38.5 % (37.0-47.0); HEMOGLOBIN 12.2 g/dL (12.0-16.0); IMM GRAN# 0.03 X1000 (0.0-0.04); IMM GRAN% 0.3 % (0.0-0.5); LYMPH# 0.83 X1000 (1.2-3.4); LYMPH% 6.9 % (20.5-51.1); MCH 28.8 PG (27-31); MCHC 31.7 g/dL (33-37); MONO# 1.13 X1000 (0.11-0.59); MONO% 9.4 % (1.7-9.3); MPV 9.6 FL (7.4-10.4); NEUT# 9.97 X1000 (1.4-6.5); NEUT% 83.1 % (42.2-75.2); PLT 202 X1000 (130-400); RBC 4.23 XMIL (4.2-5.4); RDW 13.2 % (11.5-14.5); WBC 11.99 X1000 (4.8-10.8)
[2018-11-22] MEDS ORDERED: ROCEPHIN 1 GM in NS 50 ML IV ONE (20:10)
[2018-11-22] MEDS ORDERED: NS 1,000 ML IV ONE ×2 (20:10→21:29)
[2018-11-22 20:15] LABS: ESTIMATED GFR > 60
[2018-11-22 20:19] LABS: AGAP 15; CHLORIDE 90 mmol/L (98-107); POTASSIUM 3.4 mmol/L (3.5-5.1); SODIUM 140 mmol/L (136-145); TCO2 36 mmol/L (25-35)
[2018-11-22 20:20] LABS: ALBUMIN 3.9 g/dL (3.5-5.0); ALKALINE PHOSPHATASE 73 U/L (32-104); BUN 22 mg/dL (8-22); CALCIUM 10.2 mg/dL (8.8-10.2); CK PROFILE 37 U/L (24-173); COSMO 283; CREATININE 0.8 mg/dL (0.5-0.9); GLUCOSE 110 mg/dL (70-104); GOT 20 U/L (10-30); GPT 9 U/L (10-36); TOTAL PROTEIN 6.5 g/dL (6.3-8.3)
--- NOTE | 2018-11-22 21:03 | Diag Imaging Result Doc PS360 ---
EXAM: ABDOMEN FLAT/UPRIGHT - 11/22/2018 HISTORY: weakness TECHNIQUE: Supine and upright abdomen COMPARISON: 02/19/2016 FINDINGS: The bowel gas pattern appears nonspecific and nonobstructive. There is no free air identified. There are atherosclerotic calcifications noted. IMPRESSION: Nonspecific bowel gas pattern. Electronically signed by Yoav Vallecillo 11/22/2018 9:01 PM
--- NOTE | 2018-11-22 21:06 | Diag Imaging Result Doc PS360 ---
EXAM: CHEST-2 VIEWS - 11/22/2018 HISTORY: weakness TECHNIQUE: Chest two views COMPARISON: 01/15/2017 FINDINGS: There is recurrent or chronic infiltrate at the right middle lobe which has increased. There is mild prominence of infrahilar markings on the left. There are no other acute changes identified. IMPRESSION: Recurrent or chronic infiltrate at right middle lobe which appears increased from prior. Electronically signed by Yoav Vallecillo 11/22/2018 9:03 PM
[2018-11-22 21:27] LABS: BE 18.9 mmoll (-3.0-3.0); BLOOD TYPE ARTERIAL; HCO3-(ACT) 39.6 mmoll (20.0-26.0); METHB 1.4 % (0.0-1.5); O2(CT) 16.5 mL/dL (15.0-23.0); O2HB 92.7 % (95.0-99.0); PO2(98.6) 70 mmHg (60-100); SAMPLE BLOOD; SAO2 96.7 % (95.0-100.0); THB 12.6 g/dL (11.5-17.4); pH(98.6) 7.47 (7.35-7.45)
[2018-11-22 21:30] LABS: ALLEN TEST YES; MODALITY CANNULA; PCO2(98.6) 63 mmHg (35-45)
[2018-11-22] MEDS: DUONEB (A & A) INH SCH ×2 (21:45→23:17)
[2018-11-22] MEDS: ZITHROMAX 500 MG/NS 500 MG/250 ML IVPB IV SCH (22:13)
[2018-11-23] MEDS: DUONEB (A & A) INH SCH ×4 (03:26→21:26)
[2018-11-23 05:36] LABS: CLARITY CLEAR (CLEAR); COLOR AMBER; URINE BACTERIA 1+ /HFP; URINE EPITHELIAL CELLS <10 /HPF (<10); URINE RBC <10 /HPF (<10); URINE SOURCE CATH; URINE WBC <10 /HPF (<10)
[2018-11-23 05:37] LABS: BILIRUBIN URINE NEGATIVE (NEGATIVE); BLOOD URINE 1+ (NEGATIVE); GLUCOSE URINE NEGATIVE (NEGATIVE); KETONE URINE 1+(Small) mg/dL (NEGATIVE); LEUKOCYTES URINE NEGATIVE (NEGATIVE); NITRITE URINE NEGATIVE (NEGATIVE); PROTEIN URINE TRACE mg/dL (NEGATIVE); UROBILINOGEN URINE NORMAL
[2018-11-23] MEDS ORDERED: TYLENOL PO PRN (08:48)
[2018-11-23] MEDS ORDERED: TOPROL XL PO SCH (09:00)
[2018-11-23] MEDS: ZYRTEC PO SCH (09:47)
[2018-11-23] MEDS: KLOR-CON PO SCH (09:47)
[2018-11-23] MEDS: CALTRATE 600 PO SCH (09:47)
[2018-11-23] MEDS: PEPCID PO SCH (09:48)
[2018-11-23] MEDS: ASPIRIN EC PO SCH (09:48)
[2018-11-23] MEDS: ZOSYN 3.375 GM in NS 50 ML IV SCH ×2 (10:29→16:57)
--- NOTE | 2018-11-23 10:51 | EKG Report ---
Test Performed on : 11/23/2018 10:44:14 AM Test Reason : sinus pauses Blood Pressure : / mmHG Vent. Rate : 081 BPM Atrial Rate : 081 BPM P-R Int : 264 ms QRS Dur : 146 ms QT Int : 406 ms P-R-T Axes : 068 -47 095 degrees QTc Int : 471 ms Sinus rhythm. with 1st degree AV block. Left axis deviation Left bundle branch block Abnormal ECG When compared with ECG of 15-JAN-2017 15:17, premature ventricular complexes. are no longer present Inverted T waves have replaced nonspecific T wave abnormality in Anterior leads Confirmed by Cornelius Ahumada MD ([id number]) on 11/29/2018 2:14:47 AM
--- NOTE | 2018-11-23 13:15 | HISTORY AND PHYSICAL ---
PRIMARY CARE PROVIDER: Dr. Tara Wu. [place]ELING [place]: Dr. Bravo. CHIEF COMPLAINT: Weakness and more confusion. HISTORY OF PRESENT ILLNESS: Ms. Sivan Villanueva is an 83-year-old female with a medical history of COPD on continuous two liters of oxygen at home. Also, with history of dementia, hyperlipidemia, hypertension, who now presents with a cough, not getting productive/not coming up, although it is starting to break up and some right-sided middle lobe chest pain. She denies shortness of breath. She has had a little bit more of an altered mental status and apparently was having some issues with swallowing yesterday. Now, she presents with a right middle lobe pneumonia. This possibly could be chronic. She was diagnosed with the same thing back in January of 2017. The daughter, who is at the bedside, denies her having any issues with coughing or choking while she is eating. The patient is able to feed herself and walk around without difficulties. She does have 24/7 care. She has a sitter and then on the weekends her daughter. So, will admit her and treat her with antibiotic therapy. She does have a UA that is a little bit dirty, but is asymptomatic. Despite that, she had a urine culture that shows no growth on the preliminary. She will still have antibiotic therapy which would cover any type of UTI if that is what it is, although I doubt that is what it is. Her antibiotic coverage will consist of Zosyn and azithromycin. PAST MEDICAL HISTORY: 1. GERD 2. Seasonal allergies. ALLERGIES: Levofloxacin, causes rash. HOME MEDICATIONS: 1. Aspirin, enteric coated 81 mg p.o. daily. 2. Budesonide inhaled twice daily. 3. Caltrate 600, 1200 mg p.o. daily. 4. Albuterol/Atrovent twice daily. 5. Pepcid 20 mg p.o. daily. 6. Lasix 20 mg p.o. daily. 7. Gentamicin right eye drop three times a day. 8. Atorvastatin 80 mg p.o. nightly. 9. Lisinopril/hydrochlorothiazide one tablet p.o. daily. 10.Potassium chloride 10 mEq p.o. daily. 11.Prolia intramuscular as directed. 12.Toprol 100 mg p.o. daily. 13.Zyrtec 10 mg p.o. daily. REVIEW OF SYSTEMS: Review of systems was attempted. Difficult to obtain from her as her dementia is a little more agitated with the pneumonia, but she denies all symptoms other than being weak and tired. A 14-point review of systems are complete and all were negative except for this mentioned in the above HPI. SOCIAL HISTORY: One cigarette or less per day. Denies alcohol or illicit drug use. PHYSICAL EXAMINATION: VITAL SIGNS: Temperature 97.3, heart rate 70, respiratory rate 20, blood pressure 113/57, O2 saturation 97% on 3.5 liters. GENERAL: Ms. Sivan Villanueva is an 83-year-old female. She is in no acute distress. She is resting comfortably on her right side. She is alert. She is oriented to name only. HEENT: Atraumatic, normocephalic. Pupils equal, round, reactive to light. Extraocular movements intact. Mucous membranes are dry. Right eye with a little bit of mucous drainage. NECK: Trachea midline. CARDIOVASCULAR: S1, S2. Regular rate and rhythm. No rubs, gallops, murmurs. No lower extremity edema. +2 dorsalis and radial pulses. Negative JVD or carotid bruits. PULMONARY: Clear to auscultate, decreased in the right base, actually. No accessory muscle use or work of breathing noted. Tolerating anywhere from 2 to 3.5 liters per nasal cannula. GASTROINTESTINAL: Soft, nontender, nondistended, positive bowel sounds x4. EXTREMITIES: Moves all extremities equally, about 4/5 strength. Sacrum is intact. Lower extremities have no wounds. She does have protective barriers in place. NEUROLOGIC: Oriented to name only. Followed commands. Sensory is intact. SKIN: Warm, dry, intact. Very dry, scaly skin. LABORATORY DATA: White blood cells 11,000. Hemoglobin 12. Hematocrit 38. Platelet count 202. ABGs: pH 7.47, pCO2 63, pO2 70, bicarb 30, saturation 92%. Lactate 1.6, that is on 4 liters. Sodium 140. Potassium 3.4. BUN 22. Creatinine 0.8. Glucose 110. Calcium 10.2. Bilirubin 0.80. AST 20 and ALT 9. CK 37. Troponin less than 0.01 x3. Albumin 3.9. Urinalysis essentially negative, there was bacteria 4+, a repeat was only 1+, she is asymptomatic with that. IMAGING: Abdominal x-ray with nonspecific bowel gas pattern. Chest x-ray with recurrent or chronic infiltrate at the right middle lobe, which appears increased from prior imaging. EKG: Normal sinus rhythm with a first degree AV block. Rate is 81. QTc is 471. ASSESSMENT AND PLAN: 1. Right middle lobe pneumonia likely secondary to aspiration. Consult Speech Therapy to evaluate for swallow. Will change her diet accordingly. Given her age and the complaints of some dysphagia yesterday she is at high risk for aspiration. She will be on Zosyn and azithromycin for coverage and she will get some intravenous fluids. 2. Some very short, less than a second long little pause on her electrocardiogram, probably once every ten beats or so. Her electrocardiogram shows a small first degree AV block. She is on a beta-shae, Toprol at 100 mg a day, we are going to hold it for now and just monitor her. 3. Questionable urinary tract infection. I feel like this was just a little bit of a dirty urine. There are no symptoms. No need for antibiotics for this, but if there is anything, the Zosyn should cover it. 4. Dementia that is a little bit worsened with infection. So, I guess a little encephalopathy with this, but should improve once her pneumonia improves. 5. Chronic obstructive pulmonary disease, no exacerbation. She is pretty much at baseline, pH is normal. She is on continuous two liters at home. She is only about three and half liters here, but may not really need that much. Can probably wean her back to two liters. She is on nebulizers and budesonide. 6. Hyperlipidemia. Continue statin. 7. Hypertension. Currently medications are being held. She is a little on the lower end. 8. History of atrial fibrillation but she is in sinus. Please see #2. 9. Daily tobacco abuse. Apparently she still smokes about less than one cigarette per day. 10.Deep venous thrombosis prophylaxis. Sequential compression devices. Dictated by KINSEY Rock for Zeferino Vasquez MD cc: KINSEY Rock MD
--- NOTE | 2018-11-23 16:48 | ECHO REPORT ---
ORDER DATE: 11/23/2018 INDICATION: Sinus pauses. FINDINGS: 1. Right atrium appears normal in size at 3.1 cm. 2. Mild tricuspid regurgitation. RV systolic pressure of 75 suggesting pulmonary hypertension. 3. Normal RV size and systolic function. 4. Trace pulmonic insufficiency. 5. Normal left atrial size with a dimension of 3.2, volume index of 24. 6. No mitral prolapse. Mild mitral regurgitation. 7. Normal LV size, end-diastolic dimension of 3.7. Mild left ventricular hypertrophy with a posterior and interventricular septal wall thickness of 1.2 cm each. Normal LV systolic function. Estimated EF of 65 to 70 percent with normal wall motion. 8. Aortic valve is sclerotic, but opens well. It is not stenotic. There is mild aortic insufficiency. 9. Aorta appears normal in visualized segments. 10. No pericardial effusion identified. cc: MD Zeferino Copeland MD
[2018-11-23] MEDS: GENTAMICIN 0.3% OPH DROPS OPH SCH ×2 (16:56→16:57)
--- NOTE | 2018-11-23 17:23 | PROGRESS NOTE ---
DATE: 11/23/2018 SUBJECTIVE: Patient has no major complaints. OBJECTIVE: Vital Signs: Blood pressure 97/43, heart rate of 67, respiratory rate of 18, temperature 98.3 degrees. Cardiovascular: Regular rate and rhythm. Pulmonary: Bilateral breath sounds. Clear to auscultation. GI: Soft, nontender, nondistended. Bowel sounds are positive. LABORATORY DATA: I do not have any new data today. White count 11.9. Pneumonia she has on x- ray. Her lung exam is limited, but no rales or wheezing. GI was soft, nontender, nondistended. Bowel sounds are positive. PLAN: Plan will be to treat for pneumonia. She is on aspiration coverage. I am going to get a CT scan just to evaluate for malignancy. Apparently, she has a thoracic aneurysm that is being followed and she is not deemed to be a surgical candidate. It was felt to be a right middle lobe pneumonia, but it feels like a right lower lobe pneumonia, worse than previous interestingly enough. She clearly has pneumonia there. She has a very mild dilation of her ascending aorta, but nothing major. 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 Discussed with daughter. She does not want to be extremely aggressive. The patient is a DNR 1 based on our conversation. This is a [id number] encounter note with Luana Gonzales. cc: Zeferino Vasquez MD
[2018-11-23] MEDS: ZITHROMAX 500 MG/NS 500 MG/250 ML IVPB IV SCH ×2 (20:58→23:53)
[2018-11-23] MEDS: LIPITOR PO SCH (20:58)
[2018-11-23] MEDS ORDERED: ROCEPHIN 1 GM in NS 50 ML IV SCH (21:00)
[2018-11-24] MEDS: ZOSYN 3.375 GM in NS 50 ML IV SCH ×4 (02:39→20:35)
[2018-11-24] MEDS: DUONEB (A & A) INH SCH ×4 (03:43→21:14)
[2018-11-24 06:57] LABS: AGAP 10; ALBUMIN 2.6 g/dL (3.5-5.0); BUN 18 mg/dL (8-22); CALCIUM 8.9 mg/dL (8.8-10.2); CHLORIDE 96 mmol/L (98-107); COSMO 283; CREATININE 0.6 mg/dL (0.5-0.9); ESTIMATED GFR > 60; GLUCOSE 95 mg/dL (70-104); POTASSIUM 3.2 mmol/L (3.5-5.1); SODIUM 141 mmol/L (136-145); TCO2 35 mmol/L (25-35); TOTAL PROTEIN 5.5 g/dL (6.3-8.3)
[2018-11-24 06:58] LABS: ALKALINE PHOSPHATASE 60 U/L (32-104); GOT 18 U/L (10-30); GPT 8 U/L (10-36)
[2018-11-24 07:57] LABS: EOS# 0.01 X1000 (0.0-0.7); EOS% 0.1 % (0.0-10.0); HEMATOCRIT 30.5 % (37.0-47.0); HEMOGLOBIN 9.6 g/dL (12.0-16.0); IMM GRAN# 0.04 X1000 (0.0-0.04); IMM GRAN% 0.4 % (0.0-0.5); LYMPH# 0.84 X1000 (1.2-3.4); LYMPH% 9.3 % (20.5-51.1); MCH 28.9 PG (27-31); MCHC 31.5 g/dL (33-37); MCV 91.9 FL (81-99); MONO# 0.92 X1000 (0.11-0.59); MONO% 10.1 % (1.7-9.3); NEUT# 7.27 X1000 (1.4-6.5); NEUT% 80.1 % (42.2-75.2); PLT 189 X1000 (130-400); RBC 3.32 XMIL (4.2-5.4); RDW 13.2 % (11.5-14.5); WBC 9.08 X1000 (4.8-10.8)
[2018-11-24] MEDS: KLOR-CON PO SCH (08:29)
[2018-11-24] MEDS: PEPCID PO SCH (08:29)
[2018-11-24] MEDS: CALTRATE 600 PO SCH (08:29)
[2018-11-24] MEDS: ASPIRIN EC PO SCH (08:29)
[2018-11-24] MEDS: ZYRTEC PO SCH (08:29)
[2018-11-24] MEDS ORDERED: KLOR-CON PO ONE (12:04)
[2018-11-24] MEDS: GENTAMICIN 0.3% OPH DROPS OPH SCH ×3 (12:15→18:41)
--- NOTE | 2018-11-24 14:13 | Diag Imaging Result Doc PS360 ---
EXAM: CT THORAX W/CONTRAST HISTORY: pneumonia TECHNIQUE: CT chest with contrast COMPARISON: 04/24/2015 FINDINGS: There is a small right-sided pleural effusion measuring 1.7 cm posteriorly and inferiorly in the midline. No left pleural effusion. No thoracic aortic aneurysm or dissection. Severe atherosclerosis. Heart is mildly prominent. Dense infiltrates in the right middle lobe. Atelectasis in the right lower lobe. Severe emphysema. There are several calcified mediastinal and hilar nodes with scattered granuloma. Limited images through the upper abdomen reveal several renal stones. Severe atherosclerosis. Mild scoliosis. IMPRESSION: 1.Right middle lobe pneumonia 2.Severe atherosclerosis 3.Small right pleural effusion 4.Severe emphysema This exam was performed using automated exposure control, adjustment of mA or kV according to patient size, and/or use of iterative reconstruction technique. Electronically signed by Andrei Elizabeth 11/24/2018 2:11 PM
[2018-11-24] MEDS ORDERED: MUCOMYST 20% INH ONE (15:54)
[2018-11-24] MEDS ORDERED: DUONEB (A & A) ONE (18:29)
--- NOTE | 2018-11-24 18:31 | EKG Report ---
Test Performed on : 11/24/2018 5:56:41 PM Test Reason : 150 HR on tele Blood Pressure : / mmHG Vent. Rate : 130 BPM Atrial Rate : 115 BPM P-R Int : 144 ms QRS Dur : 132 ms QT Int : 356 ms P-R-T Axes : 000 029 143 degrees QTc Int : 523 ms Undetermined rhythm Left bundle branch block Abnormal ECG When compared with ECG of 23-NOV-2018 10:44, (Unconfirmed) Current undetermined rhythm precludes rhythm comparison, needs review QRS axis shifted right Nonspecific T wave abnormality has replaced inverted T waves in Anterior leads Confirmed by Cornelius Ahumada MD ([id number]) on 11/29/2018 2:17:48 AM
--- NOTE | 2018-11-24 19:27 | PROGRESS NOTE ---
DATE: 11/24/2018 SUBJECTIVE: Ms. Nicole Villanueva is an 83-year-old female. She is in no acute distress. Sitting comfortably up in bed, eating lunch. Her daughter is helping her eat. States she is feeling better. Daughter feels like she is feeling better as well. There were some complaints of urinary retention through the night, which required urinary Kyle catheter placement. Apparently, the patient is used to being able to get up and go to the bathroom on her own, which may be causing this urinary retention just because the patient does not want to have an accident. It is really unclear, as she has dementia. OBJECTIVE: Vital Signs: Temperature 98.4 degrees, heart rate 83, respiratory rate 18, blood pressure 136/72, saturation 96% on 2 L. Cardiovascular: S1 and S2, regular rate and rhythm. No rubs, gallops, murmurs. No lower extremity edema. Pulmonary: Clear to auscultation. Bilateral breath sounds. No accessory muscle use or work of breathing noted. Gastrointestinal: Soft, nontender, nondistended. Positive bowel sounds x4. Extremities: Moves all extremities equally, but weak with generalized weakness. LABORATORY DATA: White blood cells 9000, hemoglobin 9, hematocrit 30, platelet count 189,000. Sodium 141, potassium 3.2, BUN 18, creatinine 0.6, glucose 95, calcium 8.9, bilirubin 0.6, AST 18, ALT 8, albumin 2.6. IMAGING: She had a chest CT today which showed again right middle lobe pneumonia, severe atherosclerosis, small pleural effusion, severe emphysema. Apparently she has got some renal stones as well, along with severe atherosclerosis and mild scoliosis. She had a echocardiogram which showed a normal ejection fraction of 65% to 70%, and she does have pulmonary hypertension with systolic pressure 75 mmHg. ASSESSMENT AND PLAN: 1. Right middle lobe pneumonia. Currently being treated with Zithromax and Zosyn, nebulizers. 2. Chronic obstructive pulmonary disease, again being treated with nebulizers and acetylcysteine twice a day. 3. Apparently she has been having some little short, very slow little pauses in between every 10 beats or so. It is not extremely obvious today, but her beta-shae was discontinued yesterday due to that. 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 5. Urinary retention. Likely could be in her head just where she is used to getting up and going on her home. Either way, she required a Kyle catheter placement. 6. Dementia, stable and improving the confusion. Dictated by KINSEY Rock for Zeferino Vasquez MD cc: KINSEY Rock MD
--- NOTE | 2018-11-24 19:30 | PROGRESS NOTE ---
DATE: 11/24/2018 SUBJECTIVE: The patient is looking well. She is more awake today, coughing up a bit. OBJECTIVE: Vital Signs: BP 130/58, heart rate of 100, respiratory rate 20, temperature 98 degrees, satting 91% on 2 L. Cardiovascular: Regular rate and rhythm. Pulmonary: Bilateral breath sounds. Clear to auscultation. GI: Soft, nontender, nondistended. Bowel sounds are positive. LABORATORY DATA: White count 9, hemoglobin and hematocrit 9 and 30, platelets 189. Potassium 3.2, albumin 2.6. PROBLEM LIST: 1. Right middle lobe pneumonia, severe emphysema. We will continue antibiotics. She is currently on Levaquin. She is on Zosyn and azithromycin and seems to be doing okay. She is on breathing treatments and she is on Mucomyst. 2. Presumably some dementia. We will continue treatment and follow closely. 3. Chronic obstructive pulmonary disease; appears to be pretty stable. 4. Hypertension. We will continue to monitor closely. DISPOSITION: Pending clinical status. Anticipate discharge hopefully in the next 24 hours. cc: Zeferino Vasquez MD
[2018-11-24] MEDS: LIPITOR PO SCH (20:35)
[2018-11-24] MEDS: MUCOMYST 20% INH SCH (21:15)
[2018-11-24] MEDS ORDERED: LASIX IV ONE (22:35)
[2018-11-24] MEDS ORDERED: ATIVAN IV PRN (22:36)
[2018-11-25] MEDS: ZITHROMAX 500 MG/NS 500 MG/250 ML IVPB IV SCH (00:21)
[2018-11-25] MEDS: ZOSYN 3.375 GM in NS 50 ML IV SCH ×4 (03:07→20:09)
--- NOTE | 2018-11-25 06:08 | EKG Report ---
Test Performed on : 11/24/2018 10:54:01 PM Test Reason : Tachycardia, SOB Blood Pressure : / mmHG Vent. Rate : 136 BPM Atrial Rate : 108 BPM P-R Int : 000 ms QRS Dur : 134 ms QT Int : 372 ms P-R-T Axes : 000 -47 113 degrees QTc Int : 559 ms Undetermined rhythm Left axis deviation Left bundle branch block Abnormal ECG No previous ECGs available Confirmed by Cornelius Ahumada MD ([id number]) on 11/29/2018 2:18:12 AM
[2018-11-25 06:23] LABS: BASO# 0.01 X1000 (0.0-0.2); BASO% 0.1 % (0.0-0.8); EOS# 0.01 X1000 (0.0-0.7); EOS% 0.1 % (0.0-10.0); HEMATOCRIT 29.9 % (37.0-47.0); HEMOGLOBIN 9.5 g/dL (12.0-16.0); IMM GRAN# 0.02 X1000 (0.0-0.04); IMM GRAN% 0.2 % (0.0-0.5); LYMPH# 0.94 X1000 (1.2-3.4); LYMPH% 9.8 % (20.5-51.1); MCH 28.9 PG (27-31); MCHC 31.8 g/dL (33-37); MCV 90.9 FL (81-99); MONO# 1.17 X1000 (0.11-0.59); MONO% 12.3 % (1.7-9.3); MPV 9.8 FL (7.4-10.4); NEUT% 77.5 % (42.2-75.2); PLT 182 X1000 (130-400); RBC 3.29 XMIL (4.2-5.4); RDW 13.2 % (11.5-14.5); WBC 9.55 X1000 (4.8-10.8)
[2018-11-25 06:32] LABS: AGAP 11; BUN 16 mg/dL (8-22); CALCIUM 8.6 mg/dL (8.8-10.2); CHLORIDE 94 mmol/L (98-107); COSMO 278; CREATININE 0.7 mg/dL (0.5-0.9); ESTIMATED GFR > 60; GLUCOSE 91 mg/dL (70-104); POTASSIUM 3.4 mmol/L (3.5-5.1); SODIUM 139 mmol/L (136-145); TCO2 35 mmol/L (25-35)
[2018-11-25] MEDS: ZYRTEC PO SCH (09:11)
[2018-11-25] MEDS: GENTAMICIN 0.3% OPH DROPS OPH SCH ×3 (09:11→17:20)
[2018-11-25] MEDS: KLOR-CON PO SCH (09:11)
[2018-11-25] MEDS: CALTRATE 600 PO SCH (09:12)
[2018-11-25] MEDS: ASPIRIN EC PO SCH (09:12)
[2018-11-25] MEDS: PEPCID PO SCH (09:12)
[2018-11-25] MEDS ORDERED: LASIX IV ONE (11:21)
[2018-11-25] MEDS ORDERED: LASIX ONE ×2 (11:21→11:25)
[2018-11-25] MEDS ORDERED: SODIUM CHLORIDE 0.9% INJ ONE (11:34)
[2018-11-25] MEDS ORDERED: PROTONIX IV ONE (11:34)
[2018-11-25 11:39] LABS: BE 11.5 mmoll (-3.0-3.0); BLOOD TYPE ARTERIAL; HCO3-(ACT) 33.9 mmoll (20.0-26.0); METHB 1.3 % (0.0-1.5); O2(CT) 15.1 mL/dL (15.0-23.0); O2HB 96.9 % (95.0-99.0); PO2(98.6) 189 mmHg (60-100); SAMPLE BLOOD; SAO2 100.2 % (95.0-100.0); THB 10.8 g/dL (11.5-17.4); pH(98.6) 7.29 (7.35-7.45)
[2018-11-25 11:41] LABS: ALLEN TEST NO; MODALITY NRB
[2018-11-25] MEDS ORDERED: XOPENEX NEB ONE (11:42)
--- NOTE | 2018-11-25 12:18 | Diag Imaging Result Doc PS360 ---
EXAM: CHEST-PORTABLE - 11/25/2018 HISTORY: tachycardia TECHNIQUE: Portable chest COMPARISON: 11/22/2018 FINDINGS: There is consolidation at the right base similar to prior. There is some prominence of interstitial markings at the left base. There is no gross vascular congestion identified elsewhere. There are small bilateral pleural effusions. There is no pneumothorax identified. The right heart border is largely obscured there is no obvious cardiomegaly. IMPRESSION: Right basilar consolidation similar to prior, suspicious for pneumonia. Some interstitial marking prominence at left base. Small bilateral pleural effusions. Electronically signed by Yoav Vallecillo 11/25/2018 12:16 PM
--- NOTE | 2018-11-25 12:25 | PROGRESS NOTE ---
DATE: 11/25/2018 SUBJECTIVE: When I saw the patient, she was ashen. Respiratory rate in the 30s. She had acrocyanosis. She was minimally responsive. Her sats were recorded in the 50s and 60s at that time. I had seen her because it looked like there were ST changes concerning for acute ischemia on her telemetry. We CAT called the patient, gave her 60mg of Lasix, breathing treatments, face mask ventilation, and her saturations have improved. On pulmonary exam, she had some rales, no wheezing, and diminished throughout. CURRENT OBJECTIVE DATA: Vital Signs: I think her last blood pressure was in the 120s/70s, heart rate in the 110s, respiratory rate in the 20s, temp 97.9 degrees. She is 100% on a nonrebreather. Cardiovascular: Tachy, but regular. Pulmonary: Rales at the bases. Diminished throughout. More rales at the right base. GI: Soft, nontender, nondistended. Bowel sounds are positive. Extremities: Trace peripheral edema. LABORATORY DATA: White count 9, hemoglobin and hematocrit 9 and 29, platelets 182,000. PH 7.29, pCO2 of 85, PaO2 of 189. That is on nonrebreather. Potassium 3.4. PROBLEM LIST: 1. Acute respiratory failure, likely multifactorial related to pneumonia, aspiration, possibly volume overload. We will continue bilevel positive airway pressure ventilation, breathing treatments, which we have adjusted for tachycardia, diuresis. She is on broad-spectrum antibiotics for pneumonia. Waiting on her repeat plain films. She will be nothing by mouth until we can get Speech to re-evaluate her. 2. Pneumonia, right middle lobe, recurrent, presumably aspiration type. She had an event last night where she threw up a little bit. It was clear. She does not do well on her left side. It tends to cause more anxiety and her breathing gets worse, and she favors her right side as far as at home, that is her kind of main position. On the left side, she just tends to get very anxious. We will continue antibiotics, pulmonary toilet. She is on breathing treatments, Mucomyst, daily chest x-rays, daily ABGs. 3. Coronary artery disease. She had some putative ischemia, but that may have just been related to her profound hypoxia. Her electrocardiogram just shows a left bundle. We will continue to monitor, see if there are any changes. Again, her family does not want to be particularly aggressive. Her echocardiogram showed a normal ejection fraction of 65% to 70%, possibly with some left ventricular hypertrophy. No clear diastolic failure was noted, but presumed. 4. Hypokalemia. Will supplement and follow. 5. I think there is some degree of underlying dementia. We will continue to monitor. At this point, she is not functional enough to go home. Discussed with the family. Unfortunately, her daughter had an episode of bradycardia and was in the emergency room currently. We will get a KUB to ensure that she does not have any obstruction, and continue to follow closely. TIME SPENT: This is a 40-minute critical care note for acute respiratory failure, requiring urgent evaluation and positive pressure ventilation. cc: Zeferino Vasquez MD [facility]
[2018-11-25] MEDS: MUCOMYST 20% INH SCH ×2 (12:26→19:40)
[2018-11-25] MEDS: XOPENEX NEB INH SCH ×4 (12:27→23:33)
[2018-11-25] MEDS: ATROVENT NEB INH SCH ×4 (12:27→23:33)
--- NOTE | 2018-11-25 12:31 | Diag Imaging Result Doc PS360 ---
EXAM: KUB ABDOMEN - 11/25/2018 HISTORY: Change in status TECHNIQUE: Portable AP spine abdomen COMPARISON: 11/22/2018 FINDINGS: The bowel gas pattern appears nonspecific and nonobstructive. There are atherosclerotic calcifications noted. IMPRESSION: Nonspecific bowel gas pattern. Electronically signed by Yoav Vallecillo 11/25/2018 12:28 PM
[2018-11-25] MEDS: POTASSIUM CHLORIDE 20 MEQ/SWI 20 MEQ/100 ML IVPB IV SCH ×3 (12:52→16:45)
[2018-11-25] MEDS: DUONEB (A & A) INH SCH (13:06)
[2018-11-25 13:14] LABS: PCO2(98.6) 85 mmHg (35-45)
--- NOTE | 2018-11-25 13:27 | EKG Report ---
Test Performed on : 11/25/2018 11:26:28 AM Test Reason : st elevation Blood Pressure : / mmHG Vent. Rate : 106 BPM Atrial Rate : 117 BPM P-R Int : 214 ms QRS Dur : 140 ms QT Int : 448 ms P-R-T Axes : 023 -30 088 degrees QTc Int : 595 ms Left axis deviation Left bundle branch block Abnormal ECG When compared with ECG of 24-NOV-2018 22:54, (Unconfirmed) Previous ECG has undetermined rhythm, needs review T wave inversion now evident in Anterior leads Confirmed by Cornelius Ahumada MD ([id number]) on 11/29/2018 2:19:50 AM
[2018-11-25 15:56] LABS: BE 19.2 mmoll (-3.0-3.0); BLOOD TYPE ARTERIAL; HCO3-(ACT) 39.9 mmoll (20.0-26.0); METHB 1.6 % (0.0-1.5); O2(CT) 13.2 mL/dL (15.0-23.0); PO2(98.6) 76 mmHg (60-100); SAMPLE BLOOD; SAO2 98.8 % (95.0-100.0); THB 9.8 g/dL (11.5-17.4); pH(98.6) 7.51 (7.35-7.45)
[2018-11-25 16:00] LABS: MODALITY BI PAP; PCO2(98.6) 56 mmHg (35-45)
[2018-11-25 16:01] LABS: ALLEN TEST NO
[2018-11-25] MEDS ORDERED: DULCOLAX PR ONE (16:58)
[2018-11-25] MEDS: LIPITOR PO SCH (20:10)
[2018-11-25] MEDS: PEPCID IV SCH (20:10)
[2018-11-26] MEDS: ZOSYN 3.375 GM in NS 50 ML IV SCH ×4 (02:45→20:08)
[2018-11-26] MEDS: ATROVENT NEB INH SCH ×6 (03:18→22:36)
[2018-11-26] MEDS: XOPENEX NEB INH SCH ×6 (03:18→22:36)
[2018-11-26 06:04] LABS: BE 14.7 mmoll (-3.0-3.0); BLOOD TYPE ARTERIAL; HCO3-(ACT) 36.1 mmoll (20.0-26.0); METHB 1.8 % (0.0-1.5); O2(CT) 19.9 mL/dL (15.0-23.0); PO2(98.6) 62 mmHg (60-100); SAMPLE BLOOD; SAO2 93.1 % (95.0-100.0); THB 15.8 g/dL (11.5-17.4); pH(98.6) 7.47 (7.35-7.45)
[2018-11-26 06:14] LABS: PCO2(98.6) 57 mmHg (35-45)
[2018-11-26 06:15] LABS: ALLEN TEST YES; MODALITY VENTIMASK; O2HB 89.5 % (95.0-99.0)
--- NOTE | 2018-11-26 06:46 | Diag Imaging Result Doc PS360 ---
CHEST-PORTABLE - 11/26/2018 INDICATION: dyspnea COMPARISON: 11/25/2018 FINDINGS: There has been some worsening in the dense consolidation in the right lung base. No infiltrates on the left side. Stable severe COPD. IMPRESSION: Worsening dense consolidation in the right lung base. Electronically signed by Arie Troncoso 11/26/2018 6:44 AM
[2018-11-26 07:14] LABS: AGAP 18; BUN 15 mg/dL (8-22); CALCIUM 9.1 mg/dL (8.8-10.2); CHLORIDE 95 mmol/L (98-107); COSMO 288; CREATININE 0.7 mg/dL (0.5-0.9); ESTIMATED GFR > 60; GLUCOSE 64 mg/dL (70-104); POTASSIUM 3.4 mmol/L (3.5-5.1); SODIUM 145 mmol/L (136-145); TCO2 32 mmol/L (25-35)
[2018-11-26] MEDS: MUCOMYST 20% INH SCH ×2 (07:44→19:43)
[2018-11-26 07:49] LABS: BASO# 0.01 X1000 (0.0-0.2); BASO% 0.1 % (0.0-0.8); HEMATOCRIT 34.2 % (37.0-47.0); HEMOGLOBIN 10.6 g/dL (12.0-16.0); IMM GRAN# 0.02 X1000 (0.0-0.04); IMM GRAN% 0.2 % (0.0-0.5); LYMPH% 9.7 % (20.5-51.1); MCH 28.2 PG (27-31); MONO# 1.07 X1000 (0.11-0.59); MONO% 11.5 % (1.7-9.3); MPV 9.6 FL (7.4-10.4); NEUT# 7.31 X1000 (1.4-6.5); NEUT% 78.5 % (42.2-75.2); PLT 215 X1000 (130-400); RBC 3.76 XMIL (4.2-5.4); RDW 13.2 % (11.5-14.5); WBC 9.31 X1000 (4.8-10.8)
[2018-11-26] MEDS: KLOR-CON PO SCH (08:37)
[2018-11-26] MEDS: ZYRTEC PO SCH (08:37)
[2018-11-26] MEDS: PEPCID IV SCH ×2 (08:37→20:09)
[2018-11-26] MEDS: CALTRATE 600 PO SCH (08:37)
[2018-11-26] MEDS: ASPIRIN EC PO SCH (08:37)
[2018-11-26] MEDS: GENTAMICIN 0.3% OPH DROPS OPH SCH ×3 (08:37→16:12)
[2018-11-26] MEDS: DULCOLAX PR SCH ×2 (08:37→20:11)
[2018-11-26] MEDS ORDERED: HYDROXYZINE IM PRN (11:03)
[2018-11-26] MEDS: HYDROXYZINE IM PRN ×2 (14:44→20:16)
[2018-11-26] MEDS ORDERED: NS 250 ML IV ONE (17:51)
[2018-11-26] MEDS: NS 1,000 ML IV SCH (18:02)
[2018-11-26] MEDS: LIPITOR PO SCH (20:10)
[2018-11-26] MEDS: SODIUM CHLORIDE 0.9% INJ SCH (20:10)
[2018-11-26] MEDS: ZITHROMAX 500 MG/NS 500 MG/250 ML IVPB IV SCH ×2 (23:15)
[2018-11-27] MEDS: ZOSYN 3.375 GM in NS 50 ML IV SCH ×4 (01:20→19:50)
[2018-11-27] MEDS: HYDROXYZINE IM PRN (01:49)
[2018-11-27] MEDS: XOPENEX NEB INH SCH ×6 (03:15→23:15)
[2018-11-27] MEDS: ATROVENT NEB INH SCH ×6 (03:15→23:15)
--- NOTE | 2018-11-27 05:18 | PROGRESS NOTE ---
DATE: 11/26/2018 SUBJECTIVE: Patient notes that she is feeling a little bit better. Denies any current fevers, and states her breathing is improved. OBJECTIVE: Vital Signs: Temperature 98.9, pulse 107, respiratory rate 18, BP 114/59 and satting 97% on a Ventimask. General: Patient is in mild respiratory distress. Overall, she is improving. HEENT: Normocephalic. Neck: Supple. Cardiovascular: Regular rate. Lungs: Chest decreased but equal breath sounds. No current crackles. No wheezing. Abdomen: Soft. Nondistended. Positive bowel sounds. Extremities: Moves all extremities with trace edema. ASSESSMENT: 1. Acute hypoxic respiratory failure with pneumonia, probably aspiration, but also with volume overload. 2. Right middle lobe pneumonia. 3. Known coronary artery disease. 4. Hypokalemia. PLAN: Overall, patient is slowly improving. She is still requiring Ventimask, breathing treatments, and antibiotics. We will continue supportive care. Continue in the ICU. TIME SPENT: 38 minutes spent in total care. cc: Kumar Becker MD
[2018-11-27 06:23] LABS: BE 14.3 mmoll (-3.0-3.0); BLOOD TYPE ARTERIAL; METHB 1.3 % (0.0-1.5); O2(CT) 12.7 mL/dL (15.0-23.0); O2HB 93.5 % (95.0-99.0); PO2(98.6) 70 mmHg (60-100); SAMPLE BLOOD; SAO2 96.6 % (95.0-100.0); THB 9.6 g/dL (11.5-17.4); pH(98.6) 7.42 (7.35-7.45)
--- NOTE | 2018-11-27 06:27 | Diag Imaging Result Doc PS360 ---
EXAM: CHEST-PORTABLE HISTORY: dyspnea TECHNIQUE: Chest single view COMPARISON: 11/26/2018 FINDINGS: The lungs are well expanded. There are dense infiltrates in the right lung base. The pulmonary vessels are small. No cardiomegaly. Prominent atherosclerosis. No pleural effusions identified. IMPRESSION: Emphysema with persistent right basilar pneumonia without significant improvement. Electronically signed by Andrei Elizabeth 11/27/2018 6:25 AM
[2018-11-27 06:28] LABS: ALLEN TEST YES; MODALITY CANNULA; PCO2(98.6) 63 mmHg (35-45)
[2018-11-27 06:54] LABS: AGAP 15; BUN 21 mg/dL (8-22); CHLORIDE 100 mmol/L (98-107); COSMO 296; CREATININE 0.7 mg/dL (0.5-0.9); ESTIMATED GFR > 60; GLUCOSE 110 mg/dL (70-104); POTASSIUM 3.7 mmol/L (3.5-5.1); SODIUM 147 mmol/L (136-145); TCO2 32 mmol/L (25-35)
[2018-11-27] MEDS: MUCOMYST 20% INH SCH ×2 (07:28→19:27)
[2018-11-27 07:33] LABS: HEMATOCRIT 32.4 % (37.0-47.0); HEMOGLOBIN 10.1 g/dL (12.0-16.0); IMM GRAN# 0.04 X1000 (0.0-0.04); IMM GRAN% 0.5 % (0.0-0.5); LYMPH# 0.77 X1000 (1.2-3.4); LYMPH% 8.9 % (20.5-51.1); MCH 28.7 PG (27-31); MCHC 31.2 g/dL (33-37); MONO# 0.94 X1000 (0.11-0.59); MONO% 10.9 % (1.7-9.3); MPV 9.7 FL (7.4-10.4); NEUT% 79.7 % (42.2-75.2); PLT 220 X1000 (130-400); RBC 3.52 XMIL (4.2-5.4); RDW 13.5 % (11.5-14.5); WBC 8.65 X1000 (4.8-10.8)
[2018-11-27] MEDS: NS 1,000 ML IV SCH (08:34)
[2018-11-27] MEDS: PEPCID IV SCH ×2 (08:37→20:04)
[2018-11-27] MEDS: SODIUM CHLORIDE 0.9% INJ SCH ×2 (08:37→20:04)
[2018-11-27] MEDS: DULCOLAX PR SCH ×2 (08:37→20:04)
[2018-11-27] MEDS: CALTRATE 600 PO SCH (08:38)
[2018-11-27] MEDS: GENTAMICIN 0.3% OPH DROPS OPH SCH ×3 (08:38→17:38)
[2018-11-27] MEDS: ASPIRIN EC PO SCH (08:39)
[2018-11-27] MEDS: ZYRTEC PO SCH (08:39)
[2018-11-27] MEDS: KLOR-CON PO SCH (08:39)
[2018-11-27] MEDS: LIPITOR PO SCH (20:04)
[2018-11-28] MEDS: ZITHROMAX 500 MG/NS 500 MG/250 ML IVPB IV SCH (00:38)
--- NOTE | 2018-11-28 00:40 | PROGRESS NOTE ---
DATE: 11/27/2018 SUBJECTIVE: Patient is actually improving. Notes that her breathing is better. Her daughter notes that her color is looking better and she is starting to breathe a little easier. OBJECTIVE: Vital signs: Temperature 98, pulse 78, respiratory 24, BP 112/54. General: Patient is in no current respiratory distress. She is still in mild hypoxic distress, although she is decreasing with Venti mask down to 2 L. HEENT: Normocephalic. Neck: Supple. Cardiovascular: Regular rate. No murmurs. Chest: Decreased but equal breath sounds. No wheezing. No crackles. Abdomen: Soft, nondistended. Extremities: Moves all extremities. ASSESSMENT: 1. Acute respiratory failure. 2. Pneumonia. 3. Probable aspiration. 4. Known coronary disease. PLAN: We will continue in ICU today. Continue to follow. Wean oxygen as tolerated. Continue antibiotics, breathing treatments. cc: Kumar Becker MD
[2018-11-28] MEDS: ZOSYN 3.375 GM in NS 50 ML IV SCH ×4 (01:46→21:43)
[2018-11-28] MEDS: XOPENEX NEB INH SCH ×6 (03:23→23:40)
[2018-11-28] MEDS: ATROVENT NEB INH SCH ×6 (03:23→23:40)
[2018-11-28 08:22] LABS: AGAP 13; BUN 21 mg/dL (8-22); CHLORIDE 107 mmol/L (98-107); COSMO 303; CREATININE 0.6 mg/dL (0.5-0.9); ESTIMATED GFR > 60; GLUCOSE 94 mg/dL (70-104); POTASSIUM 3.1 mmol/L (3.5-5.1); SODIUM 151 mmol/L (136-145); TCO2 31 mmol/L (25-35)
[2018-11-28] MEDS: MUCOMYST 20% INH SCH ×2 (08:27→20:15)
[2018-11-28] MEDS: PEPCID IV SCH ×2 (09:03→21:44)
[2018-11-28] MEDS: DULCOLAX PR SCH ×2 (09:03→21:44)
[2018-11-28] MEDS: ASPIRIN EC PO SCH ×2 (09:03→09:32)
[2018-11-28] MEDS: GENTAMICIN 0.3% OPH DROPS OPH SCH ×3 (09:03→17:13)
[2018-11-28] MEDS: KLOR-CON PO SCH ×2 (09:03→09:32)
[2018-11-28] MEDS: ZYRTEC PO SCH ×2 (09:03→09:33)
[2018-11-28] MEDS: CALTRATE 600 PO SCH ×2 (09:03→09:32)
[2018-11-28] MEDS: SODIUM CHLORIDE 0.9% INJ SCH ×2 (09:03→21:44)
[2018-11-28] MEDS: POTASSIUM CHLORIDE 20 MEQ/SWI 20 MEQ/100 ML IVPB IV SCH ×2 (18:45→23:32)
[2018-11-28] MEDS: LIPITOR PO SCH (21:45)
[2018-11-29] MEDS: ZITHROMAX 500 MG/NS 500 MG/250 ML IVPB IV SCH (01:13)
[2018-11-29] MEDS: ZOSYN 3.375 GM in NS 50 ML IV SCH ×5 (03:54→20:09)
[2018-11-29] MEDS: XOPENEX NEB INH SCH ×6 (04:00→22:58)
[2018-11-29] MEDS: ATROVENT NEB INH SCH ×6 (04:00→22:58)
--- NOTE | 2018-11-29 04:11 | PROGRESS NOTE ---
DATE: 11/28/2018 SUBJECTIVE: Patient overall notes that she is feeling better. Her daughter is at the bedside. The patient is able to talk to her a little bit better. Still not eating well. OBJECTIVE: Vital Signs: Reviewed. General: Patient is awake, alert. She is still in moderate current respiratory distress, positive rhonchi throughout. Abdomen: Soft, nondistended, nontender. Cardiovascular: Regular rate. No murmurs. Chest: As noted above. Skin: No rashes. ASSESSMENT: 1. Acute respiratory failure, hypoxic. 2. Acute hypercapnic respiratory failure. 3. Pneumonia. 4. Known coronary artery disease. 5. Hypokalemia. PLAN: Continue patient in the hospital. Continue symptomatic treatment, antibiotics, oxygen, breathing treatments, and will follow. TIME SPENT: Thirty-five minutes spent in total care. cc: Kumar Becker MD
[2018-11-29 07:02] LABS: ESTIMATED GFR > 60
[2018-11-29 07:03] LABS: AGAP 12; ALKALINE PHOSPHATASE 73 U/L (32-104); BUN 27 mg/dL (8-22); CALCIUM 9.6 mg/dL (8.8-10.2); CHLORIDE 108 mmol/L (98-107); COSMO 314; CREATININE 0.8 mg/dL (0.5-0.9); GLUCOSE 91 mg/dL (70-104); GOT 26 U/L (10-30); GPT 16 U/L (10-36); MAGNESIUM 2.4 mg/dL (1.5-2.7); POTASSIUM 3.3 mmol/L (3.5-5.1); SODIUM 156 mmol/L (136-145); TCO2 35 mmol/L (25-35); TOTAL PROTEIN 5.9 g/dL (6.3-8.3)
[2018-11-29 07:27] LABS: HEMATOCRIT 34.6 % (37.0-47.0); HEMOGLOBIN 10.1 g/dL (12.0-16.0); MCH 27.9 PG (27-31); MCHC 29.2 g/dL (33-37); MCV 95.6 FL (81-99); MPV 9.8 FL (7.4-10.4); RBC 3.62 XMIL (4.2-5.4); WBC 10.18 X1000 (4.8-10.8)
[2018-11-29] MEDS: MUCOMYST 20% INH SCH ×2 (07:57→19:08)
[2018-11-29] MEDS ORDERED: KLOR-CON PO ONE (08:37)
[2018-11-29] MEDS: ZYRTEC PO SCH (09:35)
[2018-11-29] MEDS: ASPIRIN EC PO SCH (09:35)
[2018-11-29] MEDS: KLOR-CON PO SCH (09:35)
[2018-11-29] MEDS: POTASSIUM CHLORIDE 20 MEQ/SWI 20 MEQ/100 ML IVPB IV SCH ×2 (09:36→13:34)
[2018-11-29] MEDS: PEPCID IV SCH ×2 (09:36→20:09)
[2018-11-29] MEDS: DULCOLAX PR SCH ×2 (09:36→20:09)
[2018-11-29] MEDS: CALTRATE 600 PO SCH (09:36)
[2018-11-29] MEDS: SODIUM CHLORIDE 0.9% INJ SCH (09:37)
[2018-11-29] MEDS: GENTAMICIN 0.3% OPH DROPS OPH SCH ×3 (11:44→17:14)
[2018-11-29] MEDS: LIPITOR PO SCH (20:10)
--- NOTE | 2018-11-30 00:14 | PROGRESS NOTE ---
DATE: 11/29/2018 SUBJECTIVE: Patient currently is less verbal than she was yesterday. She did have a rally yesterday morning and was able to talk with her daughter which is somewhat concerning as this may have simply been a rally. She then over the next few hours declined and has been on BiPAP since. PHYSICAL EXAMINATION: Vital Signs: Temperature 97.4 degrees, pulse 118, respiratory 26, BP 150/80. General: Patient is awake, does not answer questions nor follow commands. She currently is on BiPAP. HEENT: Normocephalic. Neck: Supple. Cardiovascular: Tachycardia. Chest: Decreased breath sounds bilaterally. Positive rhonchi throughout. No current wheezing. Very poor air movement. Abdomen: Soft, nondistended. Extremities: She is noted to move all extremities. Neurologic: Unable to assess as she does not follow commands. ASSESSMENT: 1. Acute respiratory failure. 2. Pneumonia. 3. Coronary artery disease. 4. Hypokalemia. 5. Underlying dementia 6. Do Not Resuscitate level 1. PLAN: We will continue patient in the hospital, BiPAP, breathing treatments, oxygen, antibiotics. Certainly concerned that her condition has continued to decline. Discussed with the daughter yesterday about her decline. We will continue to follow. Very concerning that she may not survive this event. cc: Kumar Becker MD
[2018-11-30] MEDS: ZITHROMAX 500 MG/NS 500 MG/250 ML IVPB IV SCH (00:53)
[2018-11-30] MEDS: ZOSYN 3.375 GM in NS 50 ML IV SCH ×4 (01:50→20:16)
[2018-11-30] MEDS: HYDROXYZINE IM PRN (01:50)
[2018-11-30] MEDS: ATROVENT NEB INH SCH ×6 (03:35→22:57)
[2018-11-30] MEDS: XOPENEX NEB INH SCH ×6 (03:35→22:57)
[2018-11-30] MEDS ORDERED: MORPHINE IV ONE (04:04)
[2018-11-30] MEDS: MUCOMYST 20% INH SCH ×2 (07:18→19:14)
[2018-11-30] MEDS: ASPIRIN EC PO SCH (09:14)
[2018-11-30] MEDS: KLOR-CON PO SCH (09:14)
[2018-11-30] MEDS: CALTRATE 600 PO SCH (09:14)
[2018-11-30] MEDS: ZYRTEC PO SCH (09:14)
[2018-11-30] MEDS: DULCOLAX PR SCH ×2 (09:15→20:16)
[2018-11-30] MEDS: PEPCID IV SCH ×2 (09:15→20:16)
[2018-11-30] MEDS: SODIUM CHLORIDE 0.9% INJ SCH (09:15)
[2018-11-30] MEDS: GENTAMICIN 0.3% OPH DROPS OPH SCH ×3 (09:15→17:22)
[2018-11-30] MEDS: MORPHINE IV PRN ×2 (15:05→20:16)
[2018-11-30] MEDS: LIPITOR PO SCH (20:17)
[2018-12-01] MEDS: ZITHROMAX 500 MG/NS 500 MG/250 ML IVPB IV SCH (00:15)
[2018-12-01] MEDS: MORPHINE IV PRN ×4 (00:20→19:41)
--- NOTE | 2018-12-01 00:28 | PROGRESS NOTE ---
DATE: 11/30/2018 SUBJECTIVE: Patient currently is off non-rebreather mask, but she is still nonverbal. Does not follow commands. Does not answer questions. PHYSICAL EXAMINATION: Vital Signs: Reviewed. Temperature 97.6 degrees, pulse 81, respiratory 31, BP 188/98. Currently, she is on 4 L. She is off non-rebreather. She is currently off BiPAP. Neck: Supple. Cardiovascular: Regular rate. No murmurs. Chest: Greatly decreased breath sounds, moderately labored. Abdomen: Soft, nondistended. Extremities: She has trace edema in her lower extremities. She is noted to move all extremities. Neurologic: Unable to assess. ASSESSMENT: 1. Acute on chronic hypoxic respiratory failure. 2. Right middle lobe pneumonia, continues to be problematic. 3. Known coronary artery disease. 4. Ventricular dysrhythmia. 5. Dementia. 6. Do Not Resuscitate. PLAN: We will continue patient in the hospital. Again discussed with the daughter that I am extremely concerned that she will not survive this event. We will continue treatment for now and continue to discuss palliative care. cc: Kumar Becker MD
[2018-12-01] MEDS: ZOSYN 3.375 GM in NS 50 ML IV SCH ×4 (02:30→19:44)
[2018-12-01] MEDS: ATROVENT NEB INH SCH ×6 (03:40→22:48)
[2018-12-01] MEDS: XOPENEX NEB INH SCH ×6 (03:40→22:49)
[2018-12-01] MEDS: MUCOMYST 20% INH SCH ×2 (08:03→19:11)
[2018-12-01] MEDS: SODIUM CHLORIDE 0.9% INJ SCH (08:32)
[2018-12-01] MEDS: DULCOLAX PR SCH ×2 (08:32→19:42)
[2018-12-01] MEDS: PEPCID IV SCH ×2 (08:32→19:44)
[2018-12-01] MEDS: GENTAMICIN 0.3% OPH DROPS OPH SCH ×3 (08:33→17:12)
[2018-12-01] MEDS: CALTRATE 600 PO SCH (08:57)
[2018-12-01] MEDS: ASPIRIN EC PO SCH (08:57)
[2018-12-01] MEDS: KLOR-CON PO SCH (08:57)
[2018-12-01] MEDS: ZYRTEC PO SCH (08:57)
[2018-12-01] MEDS: LIPITOR PO SCH (19:42)
--- NOTE | 2018-12-01 22:33 | PROGRESS NOTE ---
DATE: 12/01/2018 SUBJECTIVE: Patient does not answer questions nor follow commands. She currently is off BiPAP although required BiPAP last night when her O2 saturation dropped to the 80s. PHYSICAL EXAMINATION: Vital Signs: Reviewed. Temperature 97 degrees, pulse 86, respiratory 26, BP 124/67. General: Patient is quite ill appearing. She is somnolent. Does not answer questions nor follow commands. Her O2 saturation drops quickly when her oxygen is removed. Did require BiPAP last night. Is currently nonlabored in her breathing although has very shallow respirations. HEENT: Normocephalic. Neck: Supple. Cardiovascular: Regular rate. No murmurs. Chest: Greatly diminished breath sounds bilaterally but diminished right greater than left. No crackles, no wheezing, but very poor air movement. Abdomen: Soft, nondistended. Extremities: Moves all extremities. Neurologic: Unable to assess. ASSESSMENT: 1. Right-sided pneumonia. 2. Acute hypoxic respiratory failure. 3. Dementia. 4. Do Not Resuscitate level 1. 5. Known coronary disease. 6. Ventricular arrhythmia with several episodes of ventricular tachycardia over the last several days. PLAN: Again discussed with patient's daughter the gravity of her situation and the fact that it is very unlikely that she is going to survive this event. I did discuss not escalating care, using BiPAP if it makes her more comfortable, continuing antibiotics for now although considering comfort care measures. We will continue to treat and follow. cc: Kumar Becker MD
[2018-12-02] MEDS: ZITHROMAX 500 MG/NS 500 MG/250 ML IVPB IV SCH
[2018-12-02] MEDS: MORPHINE IV PRN ×2 (01:40→06:00)
[2018-12-02] MEDS: ZOSYN 3.375 GM in NS 50 ML IV SCH ×3 (01:40→14:15)
[2018-12-02] MEDS: LIPITOR PO SCH (02:51)
[2018-12-02] MEDS: DULCOLAX PR SCH ×2 (02:51→09:16)
[2018-12-02] MEDS: PEPCID IV SCH ×2 (02:51→09:15)
[2018-12-02] MEDS: HYDROXYZINE IM PRN (02:52)
[2018-12-02] MEDS: ATROVENT NEB INH SCH ×3 (03:04→11:30)
[2018-12-02] MEDS: XOPENEX NEB INH SCH ×3 (03:05→11:30)
[2018-12-02] MEDS: MUCOMYST 20% INH SCH (07:50)
[2018-12-02 09:14] VITALS: BP 76/52
[2018-12-02] MEDS: ASPIRIN EC PO SCH (09:15)
[2018-12-02] MEDS: ZYRTEC PO SCH (09:15)
[2018-12-02] MEDS: KLOR-CON PO SCH (09:16)
[2018-12-02] MEDS: CALTRATE 600 PO SCH (09:16)
[2018-12-02] MEDS: GENTAMICIN 0.3% OPH DROPS OPH SCH ×2 (09:16→13:05)
--- NOTE | 2018-12-02 10:41 | DISCHARGE SUMMARY ---
ADMISSION DATE: 11/22/2018 DISCHARGE DATE: 12/02/2018 DIAGNOSES: 1. Right-sided pneumonia. 2. Acute hypoxic respiratory failure. 3. Known coronary artery disease. 4. Hypokalemia. 5. Dementia. 6. Probable aspiration. DIAGNOSTICS: 1. Abdominal x-ray 11/22/2018, revealed nonspecific bowel gas pattern. 2. Chest x-ray 11/22/2018, revealed recurrent or chronic infiltrate in the right middle lobe. 3. On 11/23/2018, echocardiogram with normal LV with end-diastolic dimension of 3.7, mild left ventricular hypertrophy. Normal LV systolic function. Estimated ejection fraction of 65 to 70 percent with normal wall motion. No pericardial effusion identified. 4. On 11/24/2018, CT of the chest, right middle lobe pneumonia, severe atherosclerosis, small right pleural effusion and severe emphysema. 5. On 11/25/2018, abdominal x-ray revealed nonspecific bowel gas pattern. 6. Chest x-ray 11/27/2018, revealed emphysema with persistent right basilar pneumonia without significant improvement. 7. Microbiology: Blood cultures revealed no growth after 5 days. 8. Urine culture revealed no growth. HOSPITAL COURSE: Ms. Villanueva presented to the emergency room with weakness and confusion, found to have right middle lobe pneumonia that was very likely secondary to aspiration with hypoxic respiratory failure. She was treated with IV antibiotics, oxygen and pulmonary toilet. On the , Dr. Vasquez met with the family, had discussion and the patient was made a DNR - 1. We trended electrolytes and repleted these as appropriate. She did have periods of time where she was lucid and was able to talk to her family. Yesterday afternoon, she had a good afternoon with her family was able to talk family members. She declined through the night and this morning. She was pronounced at 0858 with family members at her bedside. Dictated by KINSEY Martinez for Kumar Becker MD cc: KINSEY Martinez MD [facility]
--- NOTE | 2018-12-03 08:16 | DISCHARGE SUMMARY ---
ADMISSION DATE: 11/22/2018 DISCHARGE DATE: 12/02/2018 FINAL DIAGNOSES: 1. Right lobar pneumonia which brought her acute hypoxic respiratory failure [*] 2. Acute hypoxic respiratory failure. 3. Ventricular dysrhythmia. 4. Known coronary artery disease. 5. Dementia. 6. Hypokalemia. 7. Acute hypercapnic respiratory failure. CONSULTATIONS: None. PROCEDURES: None. BRIEF HOSPITAL COURSE: The patient is an 83-year-old female who was admitted to the hospital [*]diagnosed with right lobar pneumonia. She was placed in the ICU where she required BiPAP for several days. A few days ago she had a [*]improvement. She was awake, was talking with daughter. She then regressed [*]improved. She continued to have increasing bouts of respiratory distress. She required BiPAP a couple of time . We did discuss with her daughter in very great lengths Do Not Resuscitate/Comfort Care. We did continue antibiotics. The patient was a Do Not Resuscitate 1, therefore, was not intubated on CPR. Unfortunately, she continued to decline and on 12/02/2018. cc: Kumar Becker MD
== END 2018-12-02 08:58 | disposition expired | DRG 177 ==
LOC: P.ED 18:40 → SUATTDRO 22:26 → P.MEDSURG 22:26 → P.ICU 11-25 11:46
PROVIDERS: ATTEND Family Medicine
CPT/HCPCS: 51701; 71010; 71020; 71045; 71046; 71260; 74000; 74018; 74019; 74020; 80048; 80053; 81001; 82550; 82805; 82948; 83735; 84484; 85025; 85027; 87040; 87088; 93005; 93010; 93306; 94640; 94660; 94668; 94761; 96365; 96367; 97163; 99285; A9270; C9113; J0456; J0696; J1940; J2060; J2270; J2543; J3410; J3480; J7030; J7040; P9612; Q9967; S0028; S0164; XXXXX